=== PATIENT | male | born 1955 | race Caucasian/White ===

== ENCOUNTER 2018-04-29 10:44 | Outpatient (CLI) | payer MEDICARE ==
--- NOTE | 2018-04-29 17:37 | XRAY Report ---
Reason: ACUTE BRONCHITIS, UNSPECIFIED Procedure Date: 04/29/2018 Accession Number: [id number] / [id number] Procedure: XR - Chest 2 View X-Ray CPT Code: 78065 FULL RESULT: EXAM: CHEST RADIOGRAPHY. EXAM DATE: 04/29/2018 10:51 AM. CLINICAL HISTORY: Acute bronchitis, unspecified. COMPARISON: None. TECHNIQUE: 2 views. FINDINGS: Lungs/Pleura: No focal opacities evident. No pleural effusion. No pneumothorax. Normal volumes. Mediastinum: Heart and mediastinal contours are unremarkable. Other: None. IMPRESSION: No acute cardiopulmonary abnormality. RADIA
== END 2018-04-29 10:45 | disposition home or self-care (01) ==
LOC: DI 10:44
PROVIDERS: ATTEND Internal Medicine
DX: J20.9 Acute bronchitis, unspecified (principal)
CPT/HCPCS: 71046

== ENCOUNTER 2018-05-18 14:14 | Emergency (ER) | payer MEDICARE ==
--- NOTE | 2018-05-18 14:33 | ED Physician Documentation ---
PD HPI SYNCOPE - Stated complaint Stated Complaint: SYNCOPE/GLF - Chief complaint Chief Complaint: Cardiac - History obtained from History obtained from: Patient, Family (sister/POA) - History of Present Illness Timing - onset: Other (This is a 62-year-old gentleman who is a resident of a local [facility]. 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 He was taking a shower today and was feeling dizzy before the shower, he dropped something in the shower and bent over and then kind of crumpled down to the ground hitting his tailbone without complete loss of consciousness but nearly so. He still feels off but cannot verbalize how. The only specific complaint is tailbone pain. He denies chest pain or trouble breathing.) Review of Systems Constitutional: denies: Fever, Chills, Fatigue Cardiac: denies: Chest pain / pressure, Palpitations Respiratory: denies: Dyspnea, Cough GI: denies: Constipation, Diarrhea, Bloody / black stool PD PAST MEDICAL HISTORY - Past Medical History Past Medical History: Yes Cardiovascular: None Respiratory: None Neuro: Other Endocrine/Autoimmune: None GI: None : None HEENT: None Musculoskeletal: None Derm: None Other Past Medical History: AVM midline brain. - Past Surgical History Past Surgical History: No - Social History Does the pt smoke?: No Smoking Status: Never smoker Does the pt drink ETOH?: No Does the pt have substance abuse?: No - Immunizations Immunizations are current?: Yes - POLST Patient has POLST: No PD ED PE NORMAL - Vitals Vital signs reviewed: Yes - General General: Alert and oriented X 3 (He is a poor historian although he is alert and oriented) - HEENT HEENT: PERRL, EOMI - Neck Neck: Supple, no meningeal sign, No bony TTP - Cardiac Cardiac: RRR, No murmur - Respiratory Respiratory: No respiratory distress, Clear bilaterally - Abdomen Abdomen: Normal bowel sounds, Soft, Non tender - Back Back: No CVA TTP, No spinal TTP - Derm Derm: Normal color, Warm and dry - Extremities Extremities: No edema, No calf tenderness / cord - Neuro Neuro: Alert and oriented X 3, Normal speech Eye Opening: Spontaneous Motor: Obeys Commands Verbal: Oriented GCS Score: 15 Results - Vitals Vitals: Vital Signs - 24 hr 05/18/18 14:14 Temperature 36.9 C Heart Rate 82 Respiratory 16 Rate Blood Pressure 137/70 H O2 Saturation 96 Oxygen O2 Source Room air - EKG (time done) 1420 Rate: Rate (enter#) (78) Rhythm: NSR [place]: Normal Intervals: Normal CT QRS: Normal Ischemia: Normal ST segments Computer interpretation: Agree with computer - Rads (name of study) Ct Head Radiology: EMP read contemporaneously (Known AVM is demonstrated without evidence of active bleed) sacrum XR Radiology: EMP read contemporaneously (neg) PD MEDICAL DECISION MAKING - ED course ED course: 62-year-old gentleman with a near syncopal episode in the shower today, no full syncope. Infected the syncope is well explained because he was in the hot shower and then bent over which caused him to get dizzy, likely a combination of vasodilatation from the hot shower and decreased IVC return from position. That said given his history it was a specific concern about intracranial hemorrhage from the AVM, but there is no evidence of this. - Sepsis Event Vital Signs: Vital Signs - 24 hr 05/18/18 14:14 Temperature 36.9 C Heart Rate 82 Respiratory 16 Rate Blood Pressure 137/70 H O2 Saturation 96 Oxygen O2 Source Room air Departure - Departure Disposition: 01 Home, Self Care Clinical Impression: Near syncope, Intracranial arteriovenous malformation Sacral contusion Qualifiers: Encounter type: initial encounter Qualified Code(s): S30.0XXA - Contusion of lower back and pelvis, initial encounter Condition: Good Record reviewed to determine appropriate education?: Yes Instructions: ED Contusion Back, ED Near Syncope Unkn Comments: Call your doctor to arrange a follow-up appointment, make the next available appointment. In the interim, return anytime if worse or if new symptoms develop. Your blood pressure was elevated today on check into the emergency department. This does not mean that you have hypertension, it is a common phenomenon to come to the emergency department and have elevated blood pressure. I recommend that you see your primary care physician within the week to have it rechecked when you are feeling better.
[2018-05-18 14:54] LABS: BASOPHILS # (AUTO) 0.1 10^3/uL (0.0-0.1); BASOPHILS % (AUTO) 0.7 %; EOSINOPHILS # (AUTO) 0.1 10^3/uL (0.0-0.7); EOSINOPHILS % (AUTO) 1.5 %; HGB - HEMOGLOBIN 13.4 g/dL (14.0-18.0); LYMPHOCYTES # (AUTO) 1.8 10^3/uL (1.5-3.5); LYMPHOCYTES % (AUTO) 19.3 %; MEAN CORPUSCULAR HEMOGLOBIN 31.8 pg (27.0-31.0); MEAN CORPUSCULAR HGB CONC 34.6 g/dL (32.0-36.0); MEAN CORPUSCULAR VOLUME 91.9 fL (80.0-94.0); MEAN PLATELET VOLUME 8.7 fL (7.4-11.4); MONOCYTES # (AUTO) 0.7 10^3/uL (0.0-1.0); MONOCYTES % (AUTO) 7.1 %; NEUTROPHILS # (AUTO) 6.8 10^3/uL (1.5-6.6); NEUTROPHILS % (AUTO) 71.4 %; PLT - PLATELET COUNT 187 10^3/uL (130-450); RED BLOOD COUNT 4.23 10^6/uL (4.70-6.10); RED CELL DISTRIBUTION WIDTH 13.5 % (12.0-15.0); WHITE BLOOD COUNT 9.5 x10^3/uL (4.8-10.8)
--- NOTE | 2018-05-18 14:57 | CT Report ---
Reason: known avm, syncope Procedure Date: 05/18/2018 Accession Number: [id number] / [id number] Procedure: CT - Head W/O CPT Code: FULL RESULT: EXAM: CT HEAD EXAM DATE: 05/18/2018 02:45 PM. CLINICAL HISTORY: Known arteriovenous malformation, syncope. COMPARISON: None. TECHNIQUE: Multiaxial CT images were obtained from the foramen magnum to the vertex. Reformats: Sagittal and coronal. IV contrast: None. In accordance with CT protocol optimization, one or more of the following dose reduction techniques were utilized for this exam: automated exposure control, adjustment of mA and/or KV based on patient size, or use of iterative reconstructive technique. FINDINGS: Parenchyma: No intraparenchymal hemorrhage. Findings of a calcified left basal ganglia mass with hyperdense dominant vessel coursing near the midline is consistent with the provided history of a arteriovenous malformation with likely central drainage. Extraaxial Spaces: Normal for age. No subdural or epidural collections identified. Ventricles: Normal in size and position. Sinuses and Orbits: Imaged paranasal sinuses, orbits, and mastoids show no significant abnormality. Bones: No evidence of fracture or calvarial defect. Other: None. IMPRESSION: No acute intracranial hemorrhage. RADIA
[2018-05-18 15:01] LABS: PT - PROTHROMBIN TIME 11.4 secs (9.9-12.6)
[2018-05-18 15:07] LABS: ALBUMIN 3.8 g/dL (3.2-5.5); ALBUMIN/GLOBULIN RATIO 1.2 (1.0-2.2); ALKALINE PHOSPHATASE 96 IU/L (42-121); ALT ALANINE AMINOTRANSFERASE 33 IU/L (10-60); AST ASPARTATE AMINOTRANSFERASE 22 IU/L (10-42); BILIRUBIN,TOTAL 0.3 mg/dL (0.2-1.0); BUN - BLOOD UREA NITROGEN 21 mg/dL (6-20); CALCIUM 8.9 mg/dL (8.5-10.3); CARBON DIOXIDE - CO2 28 mmol/L (21-32); CHLORIDE 102 mmol/L (101-111); CREATININE 1.4 mg/dL (0.6-1.2); GFR - MDRD 52 (>89); GLUCOSE 133 mg/dL (70-100); LIPASE 39 U/L (22-51); SODIUM 137 mmol/L (135-145)
--- NOTE | 2018-05-18 16:14 | XRAY Report ---
Reason: tailbone inj Procedure Date: 05/18/2018 Accession Number: [id number] / [id number] Procedure: XR - Sacrum/Coccyx CPT Code: FULL RESULT: EXAM: SACRUM AND COCCYX RADIOGRAPHY EXAM DATE: 05/18/2018 03:59 PM. HISTORY: Trauma, pain. COMPARISONS: None. TECHNIQUE: 3 views. FINDINGS: Alignment: Anteverted coccyx, normal variant. Otherwise unremarkable. Bones: Normal. No fracture or bone lesion. Joints: Normal. The sacroiliac joints and visualized hips are within normal limits. Degenerative disk disease at L5-S1. Soft Tissues: Unremarkable. IMPRESSION: No acute disease. RADIA
[2018-05-18 16:34] VITALS: BP 123/75
== END 2018-05-18 16:48 | disposition home or self-care (01) ==
LOC: ED 14:14
DX: R55 Syncope and collapse (principal); Q28.2 Arteriovenous malformation of cerebral vessels; S30.0XXA Contusion of lower back and pelvis, initial encounter; W17.89XA Other fall from one level to another, initial encounter; Y93.E1 Activity, personal bathing and showering; Y92.192 Bathroom in other specified residential institution as the place of occurrence of the external cause; R03.0 Elevated blood-pressure reading, without diagnosis of hypertension
CPT/HCPCS: 36415; 70450; 72220; 80053; 80320; 83690; 84484; 85025; 85610; 93005; 99283

== ENCOUNTER 2020-02-01 10:51 | Outpatient (CLI) | payer MEDICARE, MEDICAID ==
--- NOTE | 2020-02-01 14:15 | CT Report ---
PROCEDURE: HEAD WO INDICATIONS: UNSPECIFIED HEARING LOSS, BILATERAL TECHNIQUE: Noncontrast 4.5 mm thick angled axial sections acquired from the foramen magnum to the vertex. For r adiation dose reduction, the following was used: automated exposure control, adjustment of mA and/or kV according to patient size. COMPARISON: CT head 05/18/2018 FINDINGS: Image quality: Excellent. CSF spaces: Basal cisterns are patent. No extra-axial fluid collections. Ventricles are normal in size and shape. Brain: There is a partially calcified mass within the left basal ganglia extending to the midline wi th effacement of the frontal horn of the left lateral ventricle. It is overall unchanged in size and appearance. Additional serpiginous areas are identified coursing over the right frontal horn. Ambriz-w grisel matter interface is normal. Skull and face: Calvarium and visualized facial bones are intact, without suspicious lesions. Sinuses: Visualized sinuses and mastoids are clear. IMPRESSION: 1. No acute intracranial process. If hearing persists, further evaluation with MRI IAC protocol is r ecommended. 2. Partially calcified left basal ganglia mass as described above. It is stable and consistent with g iven history of vascular malformation. Reviewed by: Maria Teresa Wallace MD on 02/01/2020 2:14 PM PDT Approved by: Maria Teresa Wallace MD on 02/01/2020 2:14 PM PDT Station ID: [id number]
== END 2020-02-01 10:52 | disposition home or self-care (01) ==
LOC: DI 10:51
PROVIDERS: ATTEND Family Medicine
DX: H91.93 Unspecified hearing loss, bilateral (principal)
CPT/HCPCS: 70450

== ENCOUNTER 2020-02-28 18:50 | Emergency (ER) | payer MEDICARE, MEDICAID ==
--- NOTE | 2020-02-28 19:12 | ED Physician Documentation ---
History of Present Illness - Stated complaint Stated Complaint: DIZZY - Chief complaint Chief Complaint: General - History obtained from History obtained from: Patient, Family (sister) - Additonal information Additional information: 64-year-old gentleman with some cognitive deficits presents accompanied by his sister because at the assisted living center they gave him his routine medications at 6 PM and then at 605 accidentally gave him another patient's medications which included clopidogrel 75 mg, an extra dose of a statin, and 1 mg of prazosin. He says he feels a little loopy but otherwise fine. Note made that he denies any headache which is reassuring since he has a known large AVM. Review of Systems Constitutional: reports: Reviewed and negative Nose: reports: Reviewed and negative Throat: reports: Reviewed and negative PD PAST MEDICAL HISTORY - Past Medical History Cardiovascular: None Respiratory: None Neuro: Other Endocrine/Autoimmune: None GI: None : None HEENT: None Musculoskeletal: None Derm: None - Past Surgical History Past Surgical History: No - Allergies Allergies/Adverse Reactions: Allergies Allergy/AdvReac Type Severity Reaction Status Date / Time No Known Drug Allergies Allergy Verified 02/28/20 18:54 - Social History Does the pt smoke?: No Smoking Status: Never smoker Does the pt drink ETOH?: No Does the pt have substance abuse?: No - Immunizations Immunizations are current?: Yes - POLST Patient has POLST: No PD ED PE NORMAL - Vitals Vital signs reviewed: Yes - General General: Alert and oriented X 3, Other (He is alert and oriented but slow historian and most of the history is from his sister.) - HEENT HEENT: PERRL, EOMI - Neck Neck: Supple, no meningeal sign, No bony TTP - Extremities Extremities: No edema, No calf tenderness / cord - Neuro Neuro: No motor deficit, No sensory deficit Results - Vitals Vitals: Vital Signs - 24 hr 02/28/20 18:55 Temperature 36.5 C Heart Rate 105 H Respiratory 16 Rate Blood Pressure 100/57 L O2 Saturation 93 Oxygen O2 Source Room air - EKG (time done) 1859 Rate: Rate (enter#) (105) Rhythm: Sinus tachycardia [place]: Normal Intervals: Normal [place] QRS: Normal Ischemia: Normal ST segments Computer interpretation: Agree with computer PD MEDICAL DECISION MAKING - ED course ED course: 64-year-old gentleman with accidental but nontoxic overdose. Given the AVM and Plavix ingestion frequent checks were recommended but otherwise no specific care is necessary. Departure - Departure Disposition: 01 Home, Self Care Clinical Impression: Accidental overdose Qualifiers: Encounter type: initial encounter Qualified Code(s): T50.901A - Poisoning by unspecified drugs, medicaments and biological substances, accidental ( unintentional), initial encounter Condition: Good Record reviewed to determine appropriate education?: Yes Instructions: ED Overdose Accidental Comments: I would ask Gary to do every 8 hour checks on you to make sure you do not have a significant headache. Otherwise expect any and all symptoms to be gone by morning.
[2020-02-28 19:36] VITALS: BP 135/84
== END 2020-02-28 19:24 | disposition home or self-care (01) ==
LOC: ED 18:50
DX: T45.521A Poisoning by antithrombotic drugs, accidental (unintentional), initial encounter (principal); T44.6X1A Poisoning by alpha-adrenoreceptor antagonists, accidental (unintentional), initial encounter; R41.82 Altered mental status, unspecified; Y92.199 Unspecified place in other specified residential institution as the place of occurrence of the external cause
CPT/HCPCS: 93005; 99283

== ENCOUNTER 2021-04-27 12:40 | Outpatient (CLI) | payer MEDICARE, MEDICAID ==
--- NOTE | 2021-04-27 13:06 | CT Report ---
PROCEDURE: HEAD WO INDICATIONS: ARTERIOVENOUS MALFORMATION TECHNIQUE: Noncontrast 4.5 mm thick angled axial sections acquired from the foramen magnum to the vertex. For r adiation dose reduction, the following was used: automated exposure control, adjustment of mA and/or kV according to patient size. COMPARISON: Prior head CT from 01/29/2020 FINDINGS: Image quality: Excellent. CSF spaces: Basal cisterns are patent. No extra-axial fluid collections. Brain: No midline shift. No evidence of acute intracranial hemorrhage. There is redemonstration of large AVM involving the left basal ganglia region with associated calcifications, and slight rightwar d midline shift which is also unchanged. Ambriz-white matter interface is normal. Skull and face: Calvarium and visualized facial bones are intact, without suspicious lesions. Sinuses: Visualized sinuses and mastoids are clear. IMPRESSION: Overall, stable examination since 02/01/2020. Redemonstrated large vascular malformation in the region of the left basal ganglia . No interval change or acute intracranial process. Reviewed by: Gunnar Gupta MD on 04/27/2021 1:05 PM PDT Approved by: Gunnar Gupta MD on 04/27/2021 1:05 PM PDT Station ID: [id number]
== END 2021-04-27 12:41 | disposition home or self-care (01) ==
LOC: DI 12:40
PROVIDERS: ATTEND Family Medicine
DX: H91.93 Unspecified hearing loss, bilateral (principal); Q28.2 Arteriovenous malformation of cerebral vessels

== ENCOUNTER 2022-07-26 12:55 | Outpatient (CLI) | payer MEDICARE, MEDICAID ==
--- NOTE | 2022-07-26 16:50 | CT Report ---
PROCEDURE: HEAD WO INDICATIONS: ARTERIOVENOUS MALFORMATION OF CEREBRAL VESSELS TECHNIQUE: Noncontrast 4.5 mm thick angled axial sections acquired from the foramen magnum to the vertex. For r adiation dose reduction, the following was used: automated exposure control, adjustment of mA and/or kV according to patient size. COMPARISON: CT head 04/27/2021 and 02/01/2020 FINDINGS: Image quality: Excellent. Brain and CSF: Basal cisterns are patent. No extra-axial fluid collections. Calcified hypodense le lizet is again seen in the region of the left basal ganglia with an enlarged tortuous vessels in the a djacent tissues and in the left lateral ventricle extending posteriorly and into the posterior fossa. The appearance does not appear significantly changed when compared to the CT from 04/27/2021 and is c onsistent with patient's known arteriovenous malformation. Stable trace rightward midline shift at th e level of the septum pellucidum. No ventriculomegaly. Ventricles are normal in size and shape. No f ocal intraperitoneal edema or acute hemorrhage is seen. Skull and face: Calvarium and visualized facial bones are intact, without suspicious lesions. Sinuses: Visualized sinuses and mastoids are clear. IMPRESSION: Large partially calcified arteriovascular malformation centered in the left basal gangli a does not appear significantly changed when compared to the CT from 04/27/2021 or 02/01/2020 Reviewed by: Fransisco Santiago MD on 07/26/2022 4:49 PM PST Approved by: Fransisco Santiago MD on 07/26/2022 4:49 PM PST Station ID: [id number]
== END 2022-07-26 12:56 | disposition home or self-care (01) ==
LOC: DI 12:55
PROVIDERS: ATTEND Family Medicine
DX: Q28.2 Arteriovenous malformation of cerebral vessels (principal)

== ENCOUNTER 2023-11-18 09:36 | Outpatient (CLI) | payer MEDICARE, MEDICAID ==
[2023-11-18 09:51] LABS: BASOPHILS % (AUTO) 0.5 %; EOSINOPHILS # (AUTO) 0.2 10^3/uL (0.0-0.7); EOSINOPHILS % (AUTO) 2.7 %; HGB - HEMOGLOBIN 14.7 g/dL (14.0-18.0); LYMPHOCYTES # (AUTO) 2.4 10^3/uL (1.5-3.5); LYMPHOCYTES % (AUTO) 30.7 %; MEAN CORPUSCULAR HEMOGLOBIN 30.2 pg (27.0-31.0); MEAN CORPUSCULAR VOLUME 94.7 fL (80.0-94.0); MEAN PLATELET VOLUME 10.8 fL (7.4-11.4); MONOCYTES # (AUTO) 0.6 10^3/uL (0.0-1.0); MONOCYTES % (AUTO) 7.2 %; NEUTROPHILS # (AUTO) 4.5 10^3/uL (1.5-6.6); NEUTROPHILS % (AUTO) 58.6 %; PLT - PLATELET COUNT 219 10^3/uL (130-450); RED BLOOD COUNT 4.86 10^6/uL (4.70-6.10); WHITE BLOOD COUNT 7.7 x10^3/uL (4.8-10.8)
[2023-11-18 10:10] LABS: ALBUMIN 4.1 g/dL (3.2-5.5); ALBUMIN/GLOBULIN RATIO 1.2 (1.0-2.2); ALKALINE PHOSPHATASE 102 IU/L (42-121); ALT ALANINE AMINOTRANSFERASE 42 IU/L (10-60); AST ASPARTATE AMINOTRANSFERASE 22 IU/L (10-42); BILIRUBIN,TOTAL 0.5 mg/dL (0.2-1.0); BUN - BLOOD UREA NITROGEN 28 mg/dL (6-20); CALCIUM 9.9 mg/dL (8.5-10.3); CARBON DIOXIDE - CO2 31 mmol/L (21-32); CHLORIDE 104 mmol/L (101-111); CHOL/HDL RATIO 5.6 (<5.0); CHOLESTEROL 196 mg/dL; CREATININE 1.5 mg/dL (0.6-1.3); GFR - MDRD 47 (>89); GLUCOSE 99 mg/dL (74-104); HDL CHOLESTEROL 35 mg/dL; LDL CHOLESTEROL,CALCULATED 119 mg/dL; LDL/HDL RATIO 3.4 (<3.6); MAGNESIUM 1.8 mg/dL (1.7-2.3); POTASSIUM 4.3 mmol/L (3.5-4.5); SODIUM 140 mmol/L (135-145); TOTAL PROTEIN 7.6 g/dL (6.4-8.9); TRIGLYCERIDES 211 mg/dL (48-352); VLDL CHOLESTEROL 42 mg/dL
== END 2023-11-18 09:37 | disposition home or self-care (01) ==
LOC: LAB 09:36
PROVIDERS: ATTEND Family Medicine
DX: E78.01 Familial hypercholesterolemia (principal); I10 Essential (primary) hypertension; Q28.2 Arteriovenous malformation of cerebral vessels; R74.9 Abnormal serum enzyme level, unspecified; Z79.899 Other long term (current) drug therapy; R55 Syncope and collapse; E55.9 Vitamin D deficiency, unspecified; R00.2 Palpitations
CPT/HCPCS: 36415; 80053; 80061; 82306; 82607; 83721; 83735; 85025

== ENCOUNTER 2023-12-23 18:12 | Emergency (ER) | payer MEDICARE, MEDICAID ==
--- NOTE | 2023-12-23 19:35 | ED Physician Documentation ---
PD HPI LOWER EXT INJURY - Stated complaint Stated Complaint: RT LEG SWELLING/PX - Chief complaint Chief Complaint: Ext Problem - History obtained from History obtained from: Patient - Additional information Additional information: The patient comes to the emergency department chief complaint of right lower extremity pain that is mainly centered in his calf. He is not exactly sure how long it has been going on but it has been at least some days. The patient has a history of a stroke previously and has some motor deficit in his right lower extremity. This does result in some alteration in the way that he is able to stand and walk. The patient's sister noticed that the right leg seemed to be enlarged compared to the left and became concerned and brought him in. The patient had not noticed any swelling. He denies any chest pain or shortness of breath. He has no history of DVT or PE. He was a smoker for many years but quit about 6 years ago after he had his stroke. No other complaints at this time. No recent surgeries. No recent long trips or other unusual immobilization. PD PAST MEDICAL HISTORY - Past Medical History Past Medical History: Yes Cardiovascular: None Respiratory: None Neuro: Dementia, CVA, Other Endocrine/Autoimmune: None GI: None : Benign prostate hypertrophy HEENT: Chronic hearing loss Psych: None Musculoskeletal: None Derm: None - Past Surgical History Past Surgical History: No - Present Medications Home Medications: Ambulatory Orders Medication Instructions Recorded Confirmed Simvastatin [Zocor] 20 mg PO DAILY 12/23/23 12/23/23 Tamsulosin [Flomax] 0.4 mg PO DAILY 12/23/23 12/23/23 - Allergies Allergies/Adverse Reactions: Allergies Allergy/AdvReac Type Severity Reaction Status Date / Time No Known Drug Allergies Allergy Verified 12/23/23 18:20 - Social History Does the pt smoke?: No Smoking Status: Never smoker Does the pt drink ETOH?: No Does the pt have substance abuse?: No - Immunizations Immunizations are current?: Yes - POLST Patient has POLST: No PD ED PE NORMAL - Vitals Vital signs reviewed: Yes - General General: No acute distress, Well developed/nourished, Other (Alert, grossly oriented) - HEENT HEENT: Atraumatic, EOMI, Moist mucous membranes - Neck Neck: Supple, no meningeal sign - Cardiac Cardiac: RRR, No murmur - Respiratory Respiratory: No respiratory distress, Clear bilaterally - Derm Derm: Normal color, Warm and dry, No rash - Extremities Extremities: No deformity, Other (Slight enlargement of the right calf compared to the left without pitting edema. Tenderness to palpation over the posterior and medial lateral calf on the right. No left-sided tenderness. Neurovascularly intact.) - Neuro Neuro: Alert and oriented X 3 - Psych Psych: Normal mood, Normal affect Results - Vitals Vitals: Vital Signs - 24 hr 12/23/23 12/23/23 18:20 20:15 Temperature 36.6 C 36.8 C Heart Rate 84 79 Respiratory 18 18 Rate Blood Pressure 120/59 L 138/69 H O2 Saturation 94 97 Oxygen O2 Source Room air - Rads (name of study) Venous duplex ultrasound right lower extremity Relevant Findings:: Final report received, See rad report (Negative) PD Medical Decision Making - ED course Complexity details: reviewed results, re-evaluated patient, considered differential, d/w patient ED course: The patient was worked up with ultrasound of his right lower extremity which was negative. I did not find any evidence of cellulitis and the patient had great pulses. I felt he was stable for discharge home. I have not found an emergent condition as a reason for his pain. We have discussed the usual indications for follow-up and return. Departure - Departure Disposition: 01 Home, Self Care Clinical Impression: Right calf pain Condition: Stable Instructions: ED Muscle Pain Leg Cramps Comments: Your ultrasound is negative. There is no blood clot and examination of your leg, other than revealing some pain/tenderness, does not show any indication for any other more serious process, such as infection. It is not clear exactly why your calf hurts although it may be related to the altered ability to move and stand since her stroke. You may take ibuprofen and/or Tylenol to help with discomfort. Please also consider stretching the calf and utilizing massage to help with some soreness. Please follow-up with your primary doctor for any further concerns. Forms: PCP List Discharge Date/Time: 12/23/23 20:15
--- NOTE | 2023-12-23 20:17 | Ultrasound Report ---
PROCEDURE: Duplex Ext Veins Right INDICATIONS: right calf pain and tenderness TECHNIQUE: Real-time imaging, as well as color and pulse Doppler interrogation, were performed of the lower extr emity deep veins from the inguinal ligament to the popliteal fossa. Attempted visualization of the ca lf veins was performed. COMPARISON: None. FINDINGS: The deep veins are normally compressible, and free of intraluminal thrombus. Color and pu lse Doppler demonstrate normal phasic intraluminal flow. There is normal augmentation response to di stal compression maneuver. IMPRESSION: No deep venous thrombosis of the visualized lower extremity. Reviewed by: Fuentes Mason MD on 12/23/2023 8:16 PM PDT Approved by: Fuentes Mason MD on 12/23/2023 8:16 PM PDT Station ID: [id number]
[2023-12-23 20:25] VITALS: BP 138/69; O2SAT 97
== END 2023-12-23 20:15 | disposition home or self-care (01) ==
LOC: ED 18:12
DX: M79.661 Pain in right lower leg (principal); Z86.73 Personal history of transient ischemic attack (TIA), and cerebral infarction without residual deficits; N40.0 Benign prostatic hyperplasia without lower urinary tract symptoms
CPT/HCPCS: 99283; 99284

== ENCOUNTER 2024-02-02 09:59 | Inpatient (IN) | payer MEDICARE, MEDICAID ==
[2024-02-02 10:46] LABS: BASOPHILS # (AUTO) 0.1 10^3/uL (0.0-0.1); BASOPHILS % (AUTO) 0.6 %; EOSINOPHILS # (AUTO) 0.1 10^3/uL (0.0-0.7); EOSINOPHILS % (AUTO) 1.1 %; HCT - HEMATOCRIT 47.9 % (42.0-52.0); HGB - HEMOGLOBIN 15.1 g/dL (14.0-18.0); MEAN CORPUSCULAR HEMOGLOBIN 29.5 pg (27.0-31.0); MEAN CORPUSCULAR HGB CONC 31.5 g/dL (32.0-36.0); MEAN CORPUSCULAR VOLUME 93.6 fL (80.0-94.0); MEAN PLATELET VOLUME 10.5 fL (7.4-11.4); MONOCYTES # (AUTO) 0.7 10^3/uL (0.0-1.0); MONOCYTES % (AUTO) 6.8 %; NEUTROPHILS # (AUTO) 7.1 10^3/uL (1.5-6.6); NEUTROPHILS % (AUTO) 71.2 %; PLT - PLATELET COUNT 253 10^3/uL (130-450); RED BLOOD COUNT 5.12 10^6/uL (4.70-6.10); RED CELL DISTRIBUTION WIDTH 12.7 % (12.0-15.0); WHITE BLOOD COUNT 9.9 x10^3/uL (4.8-10.8)
[2024-02-02 10:59] LABS: BILIRUBIN,URINE SMALL (NEGATIVE); GLUCOSE, URINE (UA) NEGATIVE (NEGATIVE); KETONES,URINE (UA) TRACE mg/dL (NEGATIVE); LEUKOCYTE ESTERASE, URINE NEGATIVE (NEGATIVE); NITRITE,URINE NEGATIVE (NEGATIVE); OCCULT BLOOD,URINE NEGATIVE (NEGATIVE); PROTEIN,URINE NEGATIVE (NEGATIVE); UROBILINOGEN,URINE 0.2 (NORMAL) E.U./dL (NORMAL)
[2024-02-02 11:01] LABS: CLARITY,URINE CLEAR (CLEAR)
[2024-02-02 11:07] LABS: ALBUMIN 4.3 g/dL (3.2-5.5); ALBUMIN/GLOBULIN RATIO 1.3 (1.0-2.2); BILIRUBIN,TOTAL 0.8 mg/dL (0.2-1.0); CALCIUM 9.7 mg/dL (8.5-10.3); CREATININE 1.6 mg/dL (0.6-1.3); POTASSIUM 4.3 mmol/L (3.5-4.5); TOTAL PROTEIN 7.5 g/dL (6.4-8.9)
--- NOTE | 2024-02-02 13:25 | ED Physician Documentation ---
History of Present Illness - Stated complaint Stated Complaint: GI,BACK PX - Chief complaint Chief Complaint: Abd Pain - History obtained from History obtained from: Patient, Family - History of Present Illness Timing: How many days ago (7-10) Pain level max: 5 Pain level now: 5 - Additonal information Additional information: Patient is a 68-year-old male, history of dementia, presents to the emergency department with generalized abdominal pain over the past 2 to 3 days. Family states that he reports he has not had a bowel movement in 10 days. Lives at [facility] assisted living. No vomiting. They tried milk of magnesia and MiraLAX with only a small soft stool. Complains of abdominal pain and distention. No fevers. No chills. No blood in the stool. 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 - Past Surgical History Past Surgical History: No - Present Medications Home Medications: Ambulatory Orders Medication Instructions Recorded Confirmed Simvastatin [Zocor] 20 mg PO DAILY 12/23/23 02/02/24 Tamsulosin [Flomax] 0.4 mg PO DAILY 12/23/23 02/02/24 Cholecalciferol [Vitamin D3] 50 mcg PO DAILY 02/02/24 02/02/24 - Allergies Allergies/Adverse Reactions: Allergies Allergy/AdvReac Type Severity Reaction Status Date / Time No Known Drug Allergies Allergy Verified 02/02/24 10:15 - Social History Does the pt smoke?: No Smoking Status: Never smoker Does the pt drink ETOH?: No Does the pt have substance abuse?: No - Immunizations Immunizations are current?: Yes - POLST Patient has POLST: No PD ED PE NORMAL - Vitals Vital signs reviewed: Yes - General General: No acute distress, Other (Alert, oriented to person and place, confused to time, at his normal baseline) - HEENT HEENT: Moist mucous membranes - Neck Neck: Supple, no meningeal sign - Cardiac Cardiac: RRR - Respiratory Respiratory: No respiratory distress, Clear bilaterally - Abdomen Abdomen: Soft, Other (TTP suprapubic without peritoneal signs.) - Back Back: No CVA TTP, No spinal TTP - Derm Derm: Warm and dry - Extremities Extremities: No edema, No calf tenderness / cord - Neuro Neuro: Other (Alert, oriented to person and place, confused to time, at his normal baseline) Results - Vitals Vitals: Vital Signs - 24 hr 02/02/24 02/02/24 02/02/24 10:16 12:54 14:00 Temperature 36.7 C Heart Rate 113 H 93 87 Respiratory 18 18 18 Rate Blood Pressure 131/78 H 140/69 H 127/87 H O2 Saturation 95 94 98 If not protocol : Oxygen Flow, liters/minute 02/02/24 02/02/24 02/02/24 16:00 16:36 16:37 Temperature 36.8 C Heart Rate 108 H Respiratory 18 Rate Blood Pressure 114/61 O2 Saturation 92 88 L 92 If not protocol 1 : Oxygen Flow, liters/minute Oxygen O2 Source Nasal cannula - Labs Labs: Laboratory Tests 02/02/24 02/02/24 02/02/24 10:32 10:41 10:41 WBC 9.9 RBC 5.12 Hgb 15.1 Hct 47.9 MCV 93.6 MCH 29.5 MCHC 31.5 L RDW 12.7 Plt Count 253 MPV 10.5 Neut # (Auto) 7.1 H Lymph # (Auto) 2.0 [place] # (Auto) 0.7 Eos # (Auto) 0.1 Baso # (Auto) 0.1 Absolute Nucleated RBC 0.00 Nucleated RBC % 0.0 Sodium 134 L Potassium 4.3 Chloride 98 L Carbon Dioxide 31 Anion Gap 5.0 L BUN 27 H Creatinine 1.6 H Estimated GFR (MDRD) 43 L Glucose 125 H Calcium 9.7 Total Bilirubin 0.8 AST 28 ALT 46 Alkaline Phosphatase 120 Total Protein 7.5 Albumin 4.3 Globulin 3.2 Albumin/Globulin Ratio 1.3 Lipase 14 Urine Color DARK YELLOW Urine Clarity CLEAR Urine pH 6.0 Ur Specific [place] 1.025 Urine Protein NEGATIVE Urine Glucose (UA) NEGATIVE Urine Ketones TRACE Urine Occult Blood NEGATIVE Urine Nitrite NEGATIVE Urine Bilirubin SMALL H Urine Urobilinogen 0.2 (NORMAL) Ur Leukocyte Esterase NEGATIVE Ur Microscopic Review NOT INDICATED Urine Culture Comments NOT INDICATED - Rads (name of study) CT abd/pelvis Relevant Findings:: Final report received, See rad report PD Medical Decision Making - ED course Complexity details: reviewed results, re-evaluated patient, considered differential, d/w patient, d/w human performance consultant ED course: 68-year-old male with what appears to be diverticulitis on his CT scan. He is well-appearing, nontoxic. Afebrile. Normal white blood cell count. Possible 4 cm abscess. Discussed the case with Dr. Bullard, general surgery on-call who reviewed the CT images and came and evaluated the patient. Recommends admission with IV antibiotics on the hospitalist service, he will consult and follow along to see how the patient progresses over the next few days. Discussed the case with the hospitalist, who accepts. Patient was given IV Zosyn. This document was made in part using voice recognition software. While efforts are made to proofread this document, sound alike and grammatical errors may curtisu r. Departure - Departure Disposition: 67 [facility] DC/Xfer Clinical Impression: Diverticulitis, Abscess of sigmoid colon due to diverticulitis Condition: Stable Discharge Date/Time: 02/02/24 17:45
[2024-02-02] MEDS: SODIUM CHLORIDE 0.9% 1,000 ML IV STA (13:28)
[2024-02-02] MEDS ORDERED: iohexoL-300 100 ML VIAL ONE (14:23)
[2024-02-02] MEDS: SALINE ENEMA 133 ML BOTTLE RC STA (14:45)
[2024-02-02] MEDS: iohexoL-300 100 ML VIAL IVP ONE (14:49)
--- NOTE | 2024-02-02 15:08 | CT Report ---
PROCEDURE: Abdomen/Pelvis W INDICATIONS: diffuse abd pain CONTRAST: 100 ML OMNI 300 TECHNIQUE: After the administration of intravenous contrast, a CT scan of the abdomen and pelvis was performed. Images were recorded and evaluated at appropriate window settings. Reformats: coronal and sagittal. F or radiation dose reduction, the following was used: automated exposure control, adjustment of mA and /or kV according to patient size. COMPARISON: None. FINDINGS: Image quality: Diagnostic. Lower chest: Streaky bibasilar pulmonary opacities. Calcification of the coronary vasculature. Liver: No solid mass. Gallbladder: Within normal limits Biliary tree: No intrahepatic or extrahepatic dilation, accounting for age. Spleen: No splenomegaly. Pancreas: No pancreatic ductal dilation. Adrenals: No adrenal nodule. Kidneys and ureters: No hydronephrosis. No renal cystic lesion which requires follow up. No solid mas s. Stomach, bowel and peritoneum: No gastric or small bowel dilation. There is diverticulosis of the quin cending and sigmoid colon. There is a focal region of thickening of the mid sigmoid colon within the anterior pelvis which demonstrates mild surrounding fat stranding. There is a gas and fluid collectio n at the posterior aspect of the thickened colon measuring roughly 40 mm diameter, with surrounding f at stranding. Lymph nodes: No central or retroperitoneal adenopathy. Vessels: No infrarenal aortic aneurysm. Patent portal vein. PELVIS Reproductive organs: Unremarkable. Bladder: No abnormal wall thickening, accounting for underdistention. Pelvic lymph nodes: No pelvic adenopathy by size criteria. Bones: No aggressive osseous abnormality. Other: No significant ventral or inguinal hernia. IMPRESSION: 1. Sigmoid diverticulitis with fluid and gas-containing pericolonic abscess. Follow-up colonoscopy is recommended to exclude underlying neoplasm. 2. Coronary artery disease. Reviewed by: Kevin Beltre MD on 02/02/2024 3:07 PM PDT Approved by: Kevin Beltre MD on 02/02/2024 3:07 PM PDT Station ID: [email or web address]
[2024-02-02] MEDS: PIPERACILLIN/TAZOBACTAM 3.375 GM in SODIUM CHLORIDE 0.9% MINIBAG 100 ML IV STA (15:47)
--- NOTE | 2024-02-02 16:59 | PHARMACY PROGRESS NOTE ---
- Best Possible Medication History Admit Date and Time: Processed by: Pharmacy Medications reviewed in ED?: Yes Medication History completed: Yes Patient Interview: Completed Secondary Source(s): Spouse/Significant other, Insurance records As the person ultimately responsible for medication therapy, providers are able to order a medication from an existing home medication list in [facility] via the "Reconcile Routine" prior to Confirmation of that medication by production support developer. Such practice is discouraged except when the physician, in their clinical judgment, deems that a medical need exists for a medication without regard to previous use.
[2024-02-02] MEDS ORDERED: SODIUM CHLORIDE FLUSH 0.9% 10 ML SYRINGE IVP PRN (17:02)
[2024-02-02] MEDS ORDERED: ONDANSETRON 4 MG/2 ML VIAL IVP PRN (17:02)
[2024-02-02] MEDS ORDERED: oxyCODONE 5 MG TABLET PO PRN (17:02)
[2024-02-02] MEDS ORDERED: HYDROmorphone 0.5 MG/0.5 ML SYRINGE IVP PRN (17:02)
[2024-02-02] MEDS ORDERED: ACETAMINOPHEN 325 MG TABLET PO PRN (17:02)
[2024-02-02] MEDS ORDERED: OLANZapine ODT 5 MG TABLET TL PRN (17:06)
--- NOTE | 2024-02-02 17:13 | HISTORY & PHYSICAL EXAMINATION ---
Chief Complaint - Chief Complaint Chief Complaint: Abdominal pain History of Present Illness - Admitted From Admitted From:: The emergency department - History Obtained From Records Reviewed: Yes History obtained from: The patient's sister and healthcare power of civil litigation attorney - History of Present Illness HPI Comment/Other: The patient is a pleasant 68-year-old gentleman with a past medical history of subarachnoid hemorrhage. He had his first hemorrhage in his 20s and had another severe hemorrhage about 7 years ago. As a result he has some cognitive deficits. He lives in a local assisted living facility. The patient was brought to the emergency room with a 1 week history of worsening abdominal pain. The patient has not had a bowel movement in over a week and has had enemas and an aggressive bowel regimen with no relief. Workup in the emergency room revealed white blood cell count of 9.9, hemoglobin of 15.1, platelet level of 253. Sodium level was 134, potassium 4.3, creatinine 1.6 with a BUN of 27. Glucose is mildly elevated at 125. Liver panel is unremarkable. CT scan of the abdomen and pelvis revealed streaky bibasilar pulmonary opacities. He was found to have evidence of sigmoid diverticulitis with a fluid and gas containing pericolonic abscess. The radiologist recommended a follow-up colonoscopy to exclude an underlying neoplasm. He also was noted to have coronary artery calcifications worrisome for coronary artery disease. The patient is awake and alert and quite pleasant. However he is unable to give any meaningful history. He is able to tell me that he has had pain in his abdomen and that it is not too bad at this time lying in the bed. Otherwise review of systems could not be obtained. I did speak at length to the patient's sister. Her name is Irma Olvera [phone]. She is his healthcare power of civil litigation attorney. She indicates that she is hoping that he will not need to have surgery. She would like for him to be a DNR and does not want any aggressive care at the end of life but would want treatment up until that point. The POLST form was filled out and will be scanned into the medical record. 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 - Family & Social History Family History: Sister: Alive and Well (Sister with diverticulitis), Other family: Alive and Well Living arrangement: Assisted living - Substance History Use: Uses substance without health or social issues: NONE Abuse: Recurrent use of substance despite neg consequences: NONE Dependence: Experiences withdrawal or developed tolerances: NONE - POLST Patient has POLST: Yes POLST Status: DNR (With selective treatment) Meds/Allgy - Home Medications Home Medications: Ambulatory Orders Medication Instructions Recorded Confirmed Simvastatin [Zocor] 20 mg PO DAILY 12/23/23 02/02/24 Tamsulosin [Flomax] 0.4 mg PO DAILY 12/23/23 02/02/24 Cholecalciferol [Vitamin D3] 50 mcg PO DAILY 02/02/24 02/02/24 - Allergies Allergies/Adverse Reactions: Allergies Allergy/AdvReac Type Severity Reaction Status Date / Time No Known Drug Allergies Allergy Verified 02/02/24 10:15 Review of Systems - Gastrointestinal Gastrointestinal: reports: Abdominal pain, Constipation - All Other Systems All Other Systems: reports: Reviewed and negative Prior Level of Functionality: The patient lives in an assisted living facility. He has difficulty ambulating and does have a walker but he does not use it all the time. Exam - Vital Signs Reviewed Vital Signs: Yes Vital Signs: Vital Signs x48h Temp Pulse Resp BP Pulse Ox O2 Flow Rate 02/02/24 16:37 92 1 02/02/24 16:36 88 L 02/02/24 16:00 36.8 C 108 H 18 114/61 92 02/02/24 14:00 87 18 127/87 H 98 02/02/24 12:54 93 18 140/69 H 94 02/02/24 10:16 36.7 C 113 H 18 131/78 H 95 - Physical Exam General Appearance: positive: No acute distress, Alert Eyes Bilateral: positive: Normal inspection Neck: positive: Nml inspection Respiratory: positive: Chest non-tender, No respiratory distress, Breath sounds nml Cardiovascular: positive: Regular rate & rhythm, No murmur, No gallop. neg ative: Friction rub Abdomen: positive: Non-tender, No organomegaly, Nml bowel sounds Skin: positive: Color nml, No rash, Warm Neurologic/Psychiatric: positive: Oriented x3, Other (But clearly with some cognitive deficits) Sepsis Event Note (H) - Sepsis Criteria Sepsis Criteria: Recorded Heart Rate greater than 90 bpm, Respiratory: Increasing oxygen requirements Conclusion/Plan - Problem List (1) Abscess of sigmoid colon due to diverticulitis Conclusion/Plan: General surgery has been consulted. The patient will continue IV Zosyn for now. He will remain NPO. We look forward to further recommendations from general surgery. (2) Hypoxia Conclusion/Plan: The patient dropped his oxygen saturations while we were in the room down to 88% on room air. CT of the abdomen and pelvis revealed some patchy opacities in the lower bases that was nonspecific. Will obtain a chest x-ray. He does not clinically appear to have pneumonia. This may be due to early developing sepsis. Continue to titrate oxygen to keep his O2 saturations greater than 92%. He is in no distress and does not appear to be acutely uncomfortable. (3) History of subarachnoid hemorrhage Conclusion/Plan: Avoid blood thinners. He will have SCDs for DVT prophylaxis. He has had 2 subarachnoid hemorrhages in the past (4) Intracranial arteriovenous malformation Conclusion/Plan: Plan as outlined above (5) Chronic kidney disease, stage 3 Conclusion/Plan: Stable. It appears that his baseline creatinine is about 1.5. Currently 1.6. He will be placed on some gentle hydration as he will be n.p.o. and he will have a chemistry panel in the morning. (6) Hyperlipidemia Conclusion/Plan: I will hold his statin medication for now. It can be restarted at discharge. (7) BPH (benign prostatic hyperplasia) Conclusion/Plan: Continue Flomax 0.4 mg daily (8) Hyperglycemia Conclusion/Plan: No history of diabetes. Likely reactive. (9) Hyponatremia Conclusion/Plan: Quite mild. He will have a chemistry panel in the morning (10) Ambulatory dysfunction Conclusion/Plan: Will have physical therapy and Occupational Therapy evaluate him during this hospitalization - Lab Results Fish Bones: 02/02/24 10:41 02/02/24 10:41 - EKG Results EKG Interpreted Independently: Yes - Other Other Results/Comments: Disposition: At this point I fully expect the patient's hospitalization to expand greater than 2 midnights. I do hope that he will turn around and be able to be discharged within 96 hours. At this point cannot rule out that he might need transfer. It depends how he responds and what general surgery's recommend ations are. Time spent: 45 minutes
--- NOTE | 2024-02-02 17:21 | CONSULTATION NOTE ---
Surgery Consult - Consult Date Consult Date: 02/02/24 Requesting Provider: Herman Coe - Chief Complaint Chief Complaint: Abdominal pain - Home Meds/Allergies Home Medications: Patient History Medication Instructions Recorded Confirmed Simvastatin [Zocor] 20 mg PO DAILY 12/23/23 02/02/24 Tamsulosin [Flomax] 0.4 mg PO DAILY 12/23/23 02/02/24 Cholecalciferol [Vitamin D3] 50 mcg PO DAILY 02/02/24 02/02/24 Allergies/Adverse Reactions: Allergies Allergy/AdvReac Type Severity Reaction Status Date / Time No Known Drug Allergies Allergy Verified 02/02/24 10:15 - Vital Signs Vital Signs: Last Vital Signs Temp 98.2 F 02/02/24 16:00 Pulse 108 H 02/02/24 16:00 Resp 18 02/02/24 16:00 BP 114/61 02/02/24 16:00 Pulse Ox 92 02/02/24 16:37 O2 Flow Rate 1 02/02/24 16:37 Intake & Output: Intake & Output 01/30/24 01/31/24 02/01/24 02/02/24 23:59 23:59 23:59 23:59 Intake Total 1000 Balance 1000 - Lab Results Result Diagrams: 02/02/24 10:41 02/02/24 10:41 - Consultation Note Consultation Note: General Surgery Consultation Note Assessment: 1) Perforated sigmoid diverticulitis with pericolonic abscess ([place] Class Ib). The patient is not clinically septic and the abscess may respond to IV antibiotics and bowel rest Recommendation: 1) NPO except ice chips, popsicles, meds 2) IV Zosyn or Cipro/Flagyl 3) Follow clinical exam - if he responds to the antibiotics, his abdominal discomfort should resolve. 4) Check with IR tomorrow to determine if there is a window for IR drainage. 5) Surgery will follow <><><><><><><><><><> Reason for Consultation Intra-abdominal abscess Chief Complaint Abdominal pain WAQAR Tubbs is a 68 year old male with about a week of constipation and abdominal pain. The discomfort worsened and he was brought to the ED for evaluation today. He denies nausea, vomiting, fever or chills. 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 Past Medical History AVM -> SAH -> Dementia Increased cholesterol BPH Coronary Artery Calcifications Past Surgical History None Family History Diverticulitis Social History Lives in an assisted-living facility; Does not smoke, drink alcohol or use recreational drugs Current Medications See "Medication" section Allergies See "Allergy" section ROS Pertinent positives Abdominal pain, constipation All other reviewed systems negative Physical Examination Vital Signs: See "Vital Signs" section BMI: 25 GENERAL APPEARANCE: Normal development, normal body habitus, normal grooming PSYCHIATRIC: AAO; Comfortable; Pleasant, Cooperative, Poor historian EYES: Pupils equal, round and reactive to light, sclera anicteric EARS, NOSE, MOUTH, THROAT: Hearing normal, Oral mucous membranes moist and without lesions; NECK: No crepitus, lymphadenopathy, or thyromegaly LUNGS: Clear to auscultation without wheezing; No use of accessory muscles to breathe CARDIOVASCULAR: Heart-NSR without murmurs; Palpable carotid arteries - no bruits; Femoral, Pedal pulses palpable; Peripheral edema absent ABD: Soft, distended, tenderness to palpation with associated fullness in the sub-umbilical region; BS present LYMPHATIC: Neck, Axillae, Groin no palpable adenopathy EXTREMITIES: No clubbing, cyanosis, infections SKIN: Anicteric; No rashes, lesions, Ulcerations Labs See "Labs" section Imaging 4 cm abscess adjacent to sigmoid colon which has inflammatory changes. No image evidence of pneumoperitoneum. See official report All images were personally reviewed by me for this encounter. Shawn Bullard MD, FACS General Surgery Service [phone]
[2024-02-02] MEDS: D5.45NS W/20 MEQ KCL 1,000 ML IV SCH (18:17)
[2024-02-02] MEDS ORDERED: HEPARIN 5,000 UNIT/ML VIAL SUBQ SCH (21:00)
[2024-02-02] MEDS: PIPERACILLIN/TAZOBACTAM 3.375 GM in SODIUM CHLORIDE 0.9% MINIBAG 100 ML IV SCH (21:08)
[2024-02-03] MEDS: SODIUM CHLORIDE FLUSH 0.9% 10 ML SYRINGE IVP SCH (01:00)
--- NOTE | 2024-02-03 07:01 | PROVIDER PROGRESS NOTE ---
Subjective - General Admit Date: 02/02/24 - Review of Systems All Other Systems: positive: Reviewed and negative Objective - Patient Data Vital Signs: Vital Signs x48h Temp Pulse Resp BP Pulse Ox 02/03/24 04:17 97.9 F 83 16 112/57 L 93 02/03/24 00:00 98.6 F 91 100/55 L 92 Weight: Weight 02/01/24 02/02/24 02/03/24 23:59 23:59 23:59 Weight (kg) 75 kg Intake & Output: Intake and Output Totals x24h 02/01/24 02/02/24 02/03/24 23:59 23:59 23:59 Intake Total 1100 848.608 Output Total 150 230 Balance 950 618.608 - Lab Results Lab Results: 02/02/24 10:41 02/02/24 10:41 Other Lab Results: Lab Results x24hrs 02/02/24 02/02/24 02/02/24 Range/Units 10:41 10:41 10:32 WBC 9.9 (4.8-10.8) x10^3/uL RBC 5.12 (4.70-6.10) 10^6/uL Hgb 15.1 (14.0-18.0) g/dL Hct 47.9 (42.0-52.0) % MCV 93.6 (80.0-94.0) fL MCH 29.5 (27.0-31.0) pg MCHC 31.5 L (32.0-36.0) g/dL RDW 12.7 (12.0-15.0) % Plt Count 253 (130-450) 10^3/uL MPV 10.5 (7.4-11.4) fL Neut # (Auto) 7.1 H (1.5-6.6) 10^3/uL Lymph # (Auto) 2.0 (1.5-3.5) 10^3/uL [place] # (Auto) 0.7 (0.0-1.0) 10^3/uL Eos # (Auto) 0.1 (0.0-0.7) 10^3/uL Baso # (Auto) 0.1 (0.0-0.1) 10^3/uL Absolute Nucleated RBC 0.00 x10^3/uL Nucleated RBC % 0.0 /100WBC Sodium 134 L (135-145) mmol/L Potassium 4.3 (3.5-4.5) mmol/L Chloride 98 L (101-111) mmol/L Carbon Dioxide 31 (21-32) mmol/L Anion Gap 5.0 L (6-13) BUN 27 H (6-20) mg/dL Creatinine 1.6 H (0.6-1.3) mg/dL Estimated GFR (MDRD) 43 L (>89) Glucose 125 H (74-104) mg/dL Calcium 9.7 (8.5-10.3) mg/dL Total Bilirubin 0.8 (0.2-1.0) mg/dL AST 28 (10-42) IU/L ALT 46 (10-60) IU/L Alkaline Phosphatase 120 (42-121) IU/L Total Protein 7.5 (6.4-8.9) g/dL Albumin 4.3 (3.2-5.5) g/dL Globulin 3.2 (2.1-4.2) g/dL Albumin/Globulin Ratio 1.3 (1.0-2.2) Lipase 14 (11-82) U/L Urine Color DARK YELLOW Urine Clarity CLEAR (CLEAR) Urine pH 6.0 (5.0-7.5) PH Ur Specific [place] 1.025 (1.002-1.030) Urine Protein NEGATIVE (NEGATIVE) mg/dL Urine Glucose (UA) NEGATIVE (NEGATIVE) mg/dL Urine Ketones TRACE (NEGATIVE) mg/dL Urine Occult Blood NEGATIVE (NEGATIVE) Urine Nitrite NEGATIVE (NEGATIVE) Urine Bilirubin SMALL H (NEGATIVE) Urine Urobilinogen 0.2 (NORMAL) (NORMAL) E.U./dL Ur Leukocyte Esterase NEGATIVE (NEGATIVE) Ur Microscopic Review NOT INDICATED Urine Culture Comments NOT INDICATED - Current Medications Current Medications: Current Medications Generic Name Dose Route Start Last Admin Trade Name Freq PRN Reason Stop Dose Admin Piperacillin Sod/Tazobactam 100 mls @ 25 mls/hr 02/02/24 20:00 02/03/24 04:28 Sod 3.375 gm/ Sodium Chloride IV 25 mls/hr Q8H REBEL Administration Potassium Chloride/Dextrose/Sod Cl 1,000 mls @ 83.333 mls/hr 02/02/24 18:00 02/03/24 03:16 D5.45ns W/20 Meq Kcl IV 83.333 mls/hr .Q12H REBEL Administration Sodium Chloride 10 ml 02/03/24 01:00 02/03/24 01:00 Sodium Chloride Flush 0.9% 10 Ml Syringe IVP 10 ml 0100,0900,1700 REBEL Administration Impression/Plan - Problem List Problem List: General Surgery Progress Note S: Comfortable. Less abdominal pain today. No BM yet. No nausea or vomiting. O: VSS, afeb; Lungs clear; Heart NST; Abd soft, non-distended, + BS, minimal suprapubic tenderness and less fullness compared to yesterday Labs: CBC WNL A: Perforated sigmoid diverticulitis with localized abscess - clinically improved P: May start clear liquids; Continue IV Zosyn; Ambulate; Nutritional supplements (Ensure or Boost) if available Shawn Bullard MD, FACS General Surgery Service
[2024-02-03 08:20] LABS: BASOPHILS # (AUTO) 0.1 10^3/uL (0.0-0.1); BASOPHILS % (AUTO) 0.6 %; EOSINOPHILS # (AUTO) 0.3 10^3/uL (0.0-0.7); EOSINOPHILS % (AUTO) 3.2 %; HCT - HEMATOCRIT 41.7 % (42.0-52.0); HGB - HEMOGLOBIN 13.4 g/dL (14.0-18.0); LYMPHOCYTES # (AUTO) 1.9 10^3/uL (1.5-3.5); LYMPHOCYTES % (AUTO) 18.4 %; MEAN CORPUSCULAR HEMOGLOBIN 30.8 pg (27.0-31.0); MEAN CORPUSCULAR HGB CONC 32.1 g/dL (32.0-36.0); MEAN CORPUSCULAR VOLUME 95.9 fL (80.0-94.0); MEAN PLATELET VOLUME 10.9 fL (7.4-11.4); MONOCYTES # (AUTO) 0.7 10^3/uL (0.0-1.0); MONOCYTES % (AUTO) 6.7 %; NEUTROPHILS # (AUTO) 7.1 10^3/uL (1.5-6.6); NEUTROPHILS % (AUTO) 70.9 %; PLT - PLATELET COUNT 192 10^3/uL (130-450); RED BLOOD COUNT 4.35 10^6/uL (4.70-6.10); RED CELL DISTRIBUTION WIDTH 13.1 % (12.0-15.0); WHITE BLOOD COUNT 10.1 x10^3/uL (4.8-10.8)
[2024-02-03 08:29] LABS: ALBUMIN 3.3 g/dL (3.2-5.5); BILIRUBIN,DIRECT 0.52 mg/dL (0.03-0.18); BILIRUBIN,TOTAL 1.2 mg/dL (0.2-1.0); CALCIUM 8.2 mg/dL (8.5-10.3); CREATININE 1.4 mg/dL (0.6-1.3); MAGNESIUM 2.2 mg/dL (1.7-2.3); PHOSPHORUS 2.2 mg/dL (2.5-5.0); TOTAL PROTEIN 6.1 g/dL (6.4-8.9)
[2024-02-03] MEDS: TAMSULOSIN 0.4 MG CAPSULE PO SCH (08:52)
--- NOTE | 2024-02-03 09:00 | PROVIDER PROGRESS NOTE ---
<Jose ManuelTatianna - Last Filed: 02/03/24 13:43> Subjective - Prog Note Date Prog Note Date: 02/03/24 Prog Note Time: 08:57 - Subjective Pt reports feeling: Improved Subjective: The patient is alert and in a pleasant mood this morning. He stated that his abdominal pain has improved. Yesterday when he pushed on his abdomen it was "firm and painful;" however today when he pushes on it there is no pain. His sister, Irma, also noted that today his urine flow has returned to normal; yesterday he was experiencing a decrease in flow which Irma attributes to his abdominal pain. Last bowel movement was yesterday in the emergency department after enema use. Current Medications - Current Medications Current Medications: Medications Acetaminophen (Acetaminophen 325 Mg Tablet) 650 mg PO Q4HR PRN PRN Reason: Pain 1 to 4, or Fever Hydromorphone HCl (Hydromorphone 0.5 Mg/0.5 Ml Syringe) 0.5 mg IVP Q2H PRN PRN Reason: Pain 8 to 10 Olanzapine (Olanzapine Odt 5 Mg Tablet) 5 mg TL HS PRN PRN Reason: Agitation Ondansetron HCl (Ondansetron 4 Mg/2 Ml Vial) 4 mg IVP Q6HR PRN PRN Reason: Nausea / Vomiting Oxycodone HCl (Oxycodone 5 Mg Tablet) 5 mg PO Q4HR PRN PRN Reason: Pain 5 to 7 Piperacillin Sod/Tazobactam (Sod 3.375 gm/ Sodium Chloride) 100 mls @ 25 mls/hr IV Q8H [facility] Last Admin: 02/03/24 08:52 Dose: Infused Tamsulosin HCl (Tamsulosin 0.4 Mg Capsule) 0.4 mg PO DAILY [facility] Last Admin: 02/03/24 08:52 Dose: 0.4 mg Objective - Vital Signs/Intake & Output Reviewed Vital Signs: Yes Vital Signs: Vital Signs x48h Temp Pulse Resp BP Pulse Ox 02/03/24 04:17 36.6 C 83 16 112/57 L 93 Intake & Output: Intake & Output 01/31/24 02/01/24 02/02/24 02/03/24 23:59 23:59 23:59 23:59 Intake Total 1100 948.608 Output Total 150 230 Balance 950 718.608 - Objective General Appearance: positive: No acute distress, Alert Eyes Bilateral: positive: Normal inspection, PERRL ENT: positive: ENT inspection nml Neck: positive: Nml inspection Respiratory: positive: Chest non-tender Cardiovascular: positive: Regular rate & rhythm, No murmur, No gallop Abdomen: positive: Nml bowel sounds, Tenderness (mild tenderness in suprapubic region) Skin: positive: Color nml Extremities: positive: Non-tender Neurologic/Psychiatric: positive: Oriented x3 - Lab Results Fish Bones: 02/03/24 07:55 02/03/24 07:55 Other Labs: Lab Results x24hrs 02/03/24 02/03/24 02/02/24 Range/Units 07:55 07:55 10:41 WBC 10.1 (4.8-10.8) x10^3/uL RBC 4.35 L (4.70-6.10) 10^6/uL Hgb 13.4 L (14.0-18.0) g/dL Hct 41.7 L (42.0-52.0) % MCV 95.9 H (80.0-94.0) fL MCH 30.8 (27.0-31.0) pg MCHC 32.1 (32.0-36.0) g/dL RDW 13.1 (12.0-15.0) % Plt Count 192 (130-450) 10^3/uL MPV 10.9 (7.4-11.4) fL Neut # (Auto) 7.1 H (1.5-6.6) 10^3/uL Lymph # (Auto) 1.9 (1.5-3.5) 10^3/uL Wells # (Auto) 0.7 (0.0-1.0) 10^3/uL Eos # (Auto) 0.3 (0.0-0.7) 10^3/uL Baso # (Auto) 0.1 (0.0-0.1) 10^3/uL Absolute Nucleated RBC 0.00 x10^3/uL Nucleated RBC % 0.0 /100WBC Sodium 135 134 L (135-145) mmol/L Potassium 4.0 4.3 (3.5-4.5) mmol/L Chloride 106 98 L (101-111) mmol/L Carbon Dioxide 24 31 (21-32) mmol/L Anion Gap 5.0 L 5.0 L (6-13) BUN 20 27 H (6-20) mg/dL Creatinine 1.4 H 1.6 H (0.6-1.3) mg/dL Estimated GFR (MDRD) 51 L 43 L (>89) Glucose 147 H 125 H (74-104) mg/dL Calcium 8.2 L 9.7 (8.5-10.3) mg/dL Phosphorus 2.2 L (2.5-5.0) mg/dL Magnesium 2.2 (1.7-2.3) mg/dL Total Bilirubin 1.2 H 0.8 (0.2-1.0) mg/dL Direct Bilirubin 0.52 H (0.03-0.18) mg/dL AST 38 28 (10-42) IU/L ALT 47 46 (10-60) IU/L Alkaline Phosphatase 94 120 (42-121) IU/L Total Protein 6.1 L 7.5 (6.4-8.9) g/dL Albumin 3.3 4.3 (3.2-5.5) g/dL Globulin 2.8 3.2 (2.1-4.2) g/dL Albumin/Globulin Ratio 1.3 (1.0-2.2) Lipase 14 (11-82) U/L Urine Color Urine Clarity (CLEAR) Urine pH (5.0-7.5) PH Ur Specific [place] (1.002-1.030) Urine Protein (NEGATIVE) mg/dL Urine Glucose (UA) (NEGATIVE) mg/dL Urine Ketones (NEGATIVE) mg/dL Urine Occult Blood (NEGATIVE) Urine Nitrite (NEGATIVE) Urine Bilirubin (NEGATIVE) Urine Urobilinogen (NORMAL) E.U./dL Ur Leukocyte Esterase (NEGATIVE) Ur Microscopic Review Urine Culture Comments 02/02/24 02/02/24 Range/Units 10:41 10:32 WBC 9.9 (4.8-10.8) x10^3/uL RBC 5.12 (4.70-6.10) 10^6/uL Hgb 15.1 (14.0-18.0) g/dL Hct 47.9 (42.0-52.0) % MCV 93.6 (80.0-94.0) fL MCH 29.5 (27.0-31.0) pg MCHC 31.5 L (32.0-36.0) g/dL RDW 12.7 (12.0-15.0) % Plt Count 253 (130-450) 10^3/uL MPV 10.5 (7.4-11.4) fL Neut # (Auto) 7.1 H (1.5-6.6) 10^3/uL Lymph # (Auto) 2.0 (1.5-3.5) 10^3/uL Wells # (Auto) 0.7 (0.0-1.0) 10^3/uL Eos # (Auto) 0.1 (0.0-0.7) 10^3/uL Baso # (Auto) 0.1 (0.0-0.1) 10^3/uL Absolute Nucleated RBC 0.00 x10^3/uL Nucleated RBC % 0.0 /100WBC Sodium (135-145) mmol/L Potassium (3.5-4.5) mmol/L Chloride (101-111) mmol/L Carbon Dioxide (21-32) mmol/L Anion Gap (6-13) BUN (6-20) mg/dL Creatinine (0.6-1.3) mg/dL Estimated GFR (MDRD) (>89) Glucose (74-104) mg/dL Calcium (8.5-10.3) mg/dL Phosphorus (2.5-5.0) mg/dL Magnesium (1.7-2.3) mg/dL Total Bilirubin (0.2-1.0) mg/dL Direct Bilirubin (0.03-0.18) mg/dL AST (10-42) IU/L ALT (10-60) IU/L Alkaline Phosphatase (42-121) IU/L Total Protein (6.4-8.9) g/dL Albumin (3.2-5.5) g/dL Globulin (2.1-4.2) g/dL Albumin/Globulin Ratio (1.0-2.2) Lipase (11-82) U/L Urine Color DARK YELLOW Urine Clarity CLEAR (CLEAR) Urine pH 6.0 (5.0-7.5) PH Ur Specific [place] 1.025 (1.002-1.030) Urine Protein NEGATIVE (NEGATIVE) mg/dL Urine Glucose (UA) NEGATIVE (NEGATIVE) mg/dL Urine Ketones TRACE (NEGATIVE) mg/dL Urine Occult Blood NEGATIVE (NEGATIVE) Urine Nitrite NEGATIVE (NEGATIVE) Urine Bilirubin SMALL H (NEGATIVE) Urine Urobilinogen 0.2 (NORMAL) (NORMAL) E.U./dL Ur Leukocyte Esterase NEGATIVE (NEGATIVE) Ur Microscopic Review NOT INDICATED Urine Culture Comments NOT INDICATED ABX Reporting Has patient been on IV antibiotics over the past 48 hours?: Yes Sepsis Event Note (H) - Sepsis Criteria Sepsis Criteria: Recorded Heart Rate greater than 90 bpm, Respiratory: Increasing oxygen requirements Assessment/Plan - Problem List (1) Abscess of sigmoid colon due to diverticulitis Impression: Currently on day 2 of IV Zosyn. Pain level significantly improved with antibiotics. Continue NPO until evaluation by interventional radiology for drainage of abscess. Patient has been consulted by general surgery this morning - plan to start ambulation and clear liquids after IR consultation. (2) History of subarachnoid hemorrhage Impression: History of two subarachonoid hemorrhages in the past. Will avoid blood thinners. (3) Hypoxia Impression: No respiratory distress, appears comfortable. Oxygen saturation at 93% on room air. (4) Chronic kidney disease, stage 3 Impression: Stable. Patient continues to be on NPO. Baseline creatinine is about 1.5, this morning it was 1.4. (5) Hyperlipidemia Impression: Holding statin medication during his admission. Will plan to restart at discharge. (6) Intracranial arteriovenous malformation Impression: See above. (7) BPH (benign prostatic hyperplasia) Impression: Stable. Continue Flomax 0.4 mg daily. (8) Hyperglycemia Impression: No history of diabetes. Glucose continues to be elevated this morning; likely reactive. (9) Hyponatremia Impression: Currently resovled. CMP this morning revealed sodium level within normal range at 135 mmol/L. (10) Ambulatory dysfunction Impression: Will plan for patient to ambulate today. Will have PT/OT evaluate him during his stay. <Britt Hein - Last Filed: 02/04/24 07:42> Objective - Vital Signs/Intake & Output Vital Signs: Vital Signs x48h Temp Pulse Resp BP Pulse Ox 02/04/24 04:24 36.7 C 74 16 116/62 92 02/04/24 00:31 36.5 C 80 16 123/70 94 Intake & Output: Intake & Output 02/01/24 02/02/24 02/03/24 02/04/24 23:59 23:59 23:59 23:59 Intake Total 1100 3278.608 1276.385 Output Total 916 530 8573 Balance 950 2548.608 226.385 - Lab Results Fish Bones: 02/04/24 05:47 02/04/24 05:47 Other Labs: Lab Results x24hrs 02/04/24 02/04/24 02/03/24 Range/Units 05:47 05:47 07:55 WBC 7.4 (4.8-10.8) x10^3/uL RBC 4.44 L (4.70-6.10) 10^6/uL Hgb 12.9 L (14.0-18.0) g/dL Hct 42.0 (42.0-52.0) % MCV 94.6 H (80.0-94.0) fL MCH 29.1 (27.0-31.0) pg MCHC 30.7 L (32.0-36.0) g/dL RDW 12.9 (12.0-15.0) % Plt Count 209 (130-450) 10^3/uL MPV 11.0 (7.4-11.4) fL Neut # (Auto) 4.2 (1.5-6.6) 10^3/uL Lymph # (Auto) 2.0 (1.5-3.5) 10^3/uL Wells # (Auto) 0.6 (0.0-1.0) 10^3/uL Eos # (Auto) 0.6 (0.0-0.7) 10^3/uL Baso # (Auto) 0.1 (0.0-0.1) 10^3/uL Absolute Nucleated RBC 0.00 x10^3/uL Nucleated RBC % 0.0 /100WBC Sodium 138 135 (135-145) mmol/L Potassium 4.5 4.0 (3.5-4.5) mmol/L Chloride 111 106 (101-111) mmol/L Carbon Dioxide 24 24 (21-32) mmol/L Anion Gap 3.0 L 5.0 L (6-13) BUN 10 20 (6-20) mg/dL Creatinine 1.3 1.4 H (0.6-1.3) mg/dL Estimated GFR (MDRD) 55 L 51 L (>89) Glucose 107 H 147 H (74-104) mg/dL Calcium 8.4 L 8.2 L (8.5-10.3) mg/dL Phosphorus 2.3 L 2.2 L (2.5-5.0) mg/dL Magnesium 2.1 2.2 (1.7-2.3) mg/dL Total Bilirubin 0.7 1.2 H (0.2-1.0) mg/dL Direct Bilirubin 0.18 0.52 H (0.03-0.18) mg/dL AST 25 38 (10-42) IU/L ALT 40 47 (10-60) IU/L Alkaline Phosphatase 103 94 (42-121) IU/L Total Protein 6.1 L 6.1 L (6.4-8.9) g/dL Albumin 3.2 3.3 (3.2-5.5) g/dL Globulin 2.9 2.8 (2.1-4.2) g/dL 06// Range/Units 07:55 WBC 10.1 (4.8-10.8) x10^3/uL RBC 4.35 L (4.70-6.10) 10^6/uL Hgb 13.4 L (14.0-18.0) g/dL Hct 41.7 L (42.0-52.0) % MCV 95.9 H (80.0-94.0) fL MCH 30.8 (27.0-31.0) pg MCHC 32.1 (32.0-36.0) g/dL RDW 13.1 (12.0-15.0) % Plt Count 192 (130-450) 10^3/uL MPV 10.9 (7.4-11.4) fL Neut # (Auto) 7.1 H (1.5-6.6) 10^3/uL Lymph # (Auto) 1.9 (1.5-3.5) 10^3/uL Wells # (Auto) 0.7 (0.0-1.0) 10^3/uL Eos # (Auto) 0.3 (0.0-0.7) 10^3/uL Baso # (Auto) 0.1 (0.0-0.1) 10^3/uL Absolute Nucleated RBC 0.00 x10^3/uL Nucleated RBC % 0.0 /100WBC Sodium (135-145) mmol/L Potassium (3.5-4.5) mmol/L Chloride (101-111) mmol/L Carbon Dioxide (21-32) mmol/L Anion Gap (6-13) BUN (6-20) mg/dL Creatinine (0.6-1.3) mg/dL Estimated GFR (MDRD) (>89) Glucose (74-104) mg/dL Calcium (8.5-10.3) mg/dL Phosphorus (2.5-5.0) mg/dL Magnesium (1.7-2.3) mg/dL Total Bilirubin (0.2-1.0) mg/dL Direct Bilirubin (0.03-0.18) mg/dL AST (10-42) IU/L ALT (10-60) IU/L Alkaline Phosphatase (42-121) IU/L Total Protein (6.4-8.9) g/dL Albumin (3.2-5.5) g/dL Globulin (2.1-4.2) g/dL Assessment/Plan - Problem List (10) Ambulatory dysfunction Impression: I discussed this case with PA student and I am in agreement with the assessment and plan
[2024-02-04 06:10] LABS: BASOPHILS # (AUTO) 0.1 10^3/uL (0.0-0.1); BASOPHILS % (AUTO) 0.7 %; EOSINOPHILS # (AUTO) 0.6 10^3/uL (0.0-0.7); EOSINOPHILS % (AUTO) 7.6 %; HGB - HEMOGLOBIN 12.9 g/dL (14.0-18.0); LYMPHOCYTES % (AUTO) 27.1 %; MEAN CORPUSCULAR HEMOGLOBIN 29.1 pg (27.0-31.0); MEAN CORPUSCULAR HGB CONC 30.7 g/dL (32.0-36.0); MEAN CORPUSCULAR VOLUME 94.6 fL (80.0-94.0); MONOCYTES # (AUTO) 0.6 10^3/uL (0.0-1.0); MONOCYTES % (AUTO) 8.1 %; NEUTROPHILS # (AUTO) 4.2 10^3/uL (1.5-6.6); NEUTROPHILS % (AUTO) 56.2 %; PLT - PLATELET COUNT 209 10^3/uL (130-450); RED BLOOD COUNT 4.44 10^6/uL (4.70-6.10); RED CELL DISTRIBUTION WIDTH 12.9 % (12.0-15.0); WHITE BLOOD COUNT 7.4 x10^3/uL (4.8-10.8)
[2024-02-04 06:31] LABS: ALBUMIN 3.2 g/dL (3.2-5.5); BILIRUBIN,DIRECT 0.18 mg/dL (0.03-0.18); BILIRUBIN,TOTAL 0.7 mg/dL (0.2-1.0); CALCIUM 8.4 mg/dL (8.5-10.3); CREATININE 1.3 mg/dL (0.6-1.3); MAGNESIUM 2.1 mg/dL (1.7-2.3); PHOSPHORUS 2.3 mg/dL (2.5-5.0); POTASSIUM 4.5 mmol/L (3.5-4.5); TOTAL PROTEIN 6.1 g/dL (6.4-8.9)
--- NOTE | 2024-02-04 08:25 | PROVIDER PROGRESS NOTE ---
<Tatianna Richard - Last Filed: 02/04/24 11:15> Subjective - Prog Note Date Prog Note Date: 02/04/24 Prog Note Time: 08:10 - Subjective Pt reports feeling: Improved Subjective: Patient stated his stomach pain feels better. He has been tolerating a clear liquid diet and is hungry for food. Has been passing gas, but has not had a BM since he was in the ED. Current Medications - Current Medications Current Medications: Medications Olanzapine (Olanzapine Odt 5 Mg Tablet) 5 mg TL HS PRN PRN Reason: Agitation Acetaminophen (Acetaminophen 325 Mg Tablet) 650 mg PO Q4HR PRN PRN Reason: Pain 1 to 4, or Fever Hydromorphone HCl (Hydromorphone 0.5 Mg/0.5 Ml Syringe) 0.5 mg IVP Q2H PRN PRN Reason: Pain 8 to 10 Ondansetron HCl (Ondansetron 4 Mg/2 Ml Vial) 4 mg IVP Q6HR PRN PRN Reason: Nausea / Vomiting Oxycodone HCl (Oxycodone 5 Mg Tablet) 5 mg PO Q4HR PRN PRN Reason: Pain 5 to 7 Piperacillin Sod/Tazobactam (Sod 3.375 gm/ Sodium Chloride) 100 mls @ 25 mls/hr IV Q8H [facility] Last Admin: 02/04/24 09:48 Dose: Infused Tamsulosin HCl (Tamsulosin 0.4 Mg Capsule) 0.4 mg PO DAILY [facility] Last Admin: 02/04/24 09:48 Dose: 0.4 mg Objective - Vital Signs/Intake & Output Reviewed Vital Signs: Yes Vital Signs: Vital Signs x48h Temp Pulse Resp BP Pulse Ox 02/04/24 04:24 36.7 C 74 16 116/62 92 02/04/24 00:31 36.5 C 80 16 123/70 94 Intake & Output: Intake & Output 02/01/24 02/02/24 02/03/24 02/04/24 23:59 23:59 23:59 23:59 Intake Total 1100 3278.608 1276.385 Output Total 446 244 8219 Balance 950 2548.608 226.385 - Objective General Appearance: positive: No acute distress, Alert Eyes Bilateral: positive: Normal inspection ENT: positive: ENT inspection nml Neck: positive: Nml inspection Respiratory: positive: Chest non-tender, No respiratory distress, Breath sounds nml Cardiovascular: positive: Regular rate & rhythm, No murmur, No gallop Abdomen: positive: Nml bowel sounds, Tenderness (mild tenderness of lower abdomen) Back: positive: Nml inspection Extremities: positive: Non-tender Neurologic/Psychiatric: positive: Oriented x3 - Lab Results Fish Bones: 02/04/24 05:47 02/04/24 05:47 Other Labs: Lab Results x24hrs 02/04/24 02/04/24 02/03/24 Range/Units 05:47 05:47 07:55 WBC 7.4 (4.8-10.8) x10^3/uL RBC 4.44 L (4.70-6.10) 10^6/uL Hgb 12.9 L (14.0-18.0) g/dL Hct 42.0 (42.0-52.0) % MCV 94.6 H (80.0-94.0) fL MCH 29.1 (27.0-31.0) pg MCHC 30.7 L (32.0-36.0) g/dL RDW 12.9 (12.0-15.0) % Plt Count 209 (130-450) 10^3/uL MPV 11.0 (7.4-11.4) fL Neut # (Auto) 4.2 (1.5-6.6) 10^3/uL Lymph # (Auto) 2.0 (1.5-3.5) 10^3/uL [place] # (Auto) 0.6 (0.0-1.0) 10^3/uL Eos # (Auto) 0.6 (0.0-0.7) 10^3/uL Baso # (Auto) 0.1 (0.0-0.1) 10^3/uL Absolute Nucleated RBC 0.00 x10^3/uL Nucleated RBC % 0.0 /100WBC Sodium 138 135 (135-145) mmol/L Potassium 4.5 4.0 (3.5-4.5) mmol/L Chloride 111 106 (101-111) mmol/L Carbon Dioxide 24 24 (21-32) mmol/L Anion Gap 3.0 L 5.0 L (6-13) BUN 10 20 (6-20) mg/dL Creatinine 1.3 1.4 H (0.6-1.3) mg/dL Estimated GFR (MDRD) 55 L 51 L (>89) Glucose 107 H 147 H (74-104) mg/dL Calcium 8.4 L 8.2 L (8.5-10.3) mg/dL Phosphorus 2.3 L 2.2 L (2.5-5.0) mg/dL Magnesium 2.1 2.2 (1.7-2.3) mg/dL Total Bilirubin 0.7 1.2 H (0.2-1.0) mg/dL Direct Bilirubin 0.18 0.52 H (0.03-0.18) mg/dL AST 25 38 (10-42) IU/L ALT 40 47 (10-60) IU/L Alkaline Phosphatase 103 94 (42-121) IU/L Total Protein 6.1 L 6.1 L (6.4-8.9) g/dL Albumin 3.2 3.3 (3.2-5.5) g/dL Globulin 2.9 2.8 (2.1-4.2) g/dL 02/03/24 Range/Units 07:55 WBC 10.1 (4.8-10.8) x10^3/uL RBC 4.35 L (4.70-6.10) 10^6/uL Hgb 13.4 L (14.0-18.0) g/dL Hct 41.7 L (42.0-52.0) % MCV 95.9 H (80.0-94.0) fL MCH 30.8 (27.0-31.0) pg MCHC 32.1 (32.0-36.0) g/dL RDW 13.1 (12.0-15.0) % Plt Count 192 (130-450) 10^3/uL MPV 10.9 (7.4-11.4) fL Neut # (Auto) 7.1 H (1.5-6.6) 10^3/uL Lymph # (Auto) 1.9 (1.5-3.5) 10^3/uL [place] # (Auto) 0.7 (0.0-1.0) 10^3/uL Eos # (Auto) 0.3 (0.0-0.7) 10^3/uL Baso # (Auto) 0.1 (0.0-0.1) 10^3/uL Absolute Nucleated RBC 0.00 x10^3/uL Nucleated RBC % 0.0 /100WBC Sodium (135-145) mmol/L Potassium (3.5-4.5) mmol/L Chloride (101-111) mmol/L Carbon Dioxide (21-32) mmol/L Anion Gap (6-13) BUN (6-20) mg/dL Creatinine (0.6-1.3) mg/dL Estimated GFR (MDRD) (>89) Glucose (74-104) mg/dL Calcium (8.5-10.3) mg/dL Phosphorus (2.5-5.0) mg/dL Magnesium (1.7-2.3) mg/dL Total Bilirubin (0.2-1.0) mg/dL Direct Bilirubin (0.03-0.18) mg/dL AST (10-42) IU/L ALT (10-60) IU/L Alkaline Phosphatase (42-121) IU/L Total Protein (6.4-8.9) g/dL Albumin (3.2-5.5) g/dL Globulin (2.1-4.2) g/dL ABX Reporting Has patient been on IV antibiotics over the past 48 hours?: Yes Sepsis Event Note (H) - Sepsis Criteria Sepsis Criteria: Recorded Heart Rate greater than 90 bpm, Respiratory: Increasing oxygen requirements Assessment/Plan - Problem List (1) Abscess of sigmoid colon due to diverticulitis Impression: CT scan was reviewed by the radiologist and Dr. Bullard. Per Dr. Bullard we will avoid percutaneous drainage unless he fails medical essie gement since the fluid in the cavity is small and the cavity size is almost too small to accept a pigtail catheter. Continue IV Zosyn - currently on day 3. Diet advanced from clear liquids to full liquids this morning for breakfast. Continue ambulation with PT/assistance as needed. Will plan to start Miralax if no bowel movement by 1-2PM. Will consider discharge tomorrow if he continues to improve, have a bowel movement, and tolerate diet advancement. (2) History of subarachnoid hemorrhage Impression: History of two subarachonoid hemorrhages in the past. Will avoid blood thinners. (4) Hyperlipidemia Impression: Patient's sister would like him to continue statin medication if possible. He takes simvastatin 20mg orally at home. Ordered atorvastatin 10mg daily. (5) Intracranial arteriovenous malformation Impression: See above. (6) BPH (benign prostatic hyperplasia) Impression: Stable. Continue Flomax 0.4 mg daily. (7) Ambulatory dysfunction Impression: Patient saw PT yesterday - he was able to ambulate down the [place] with a walker. Continue ambulation today with PT. (8) Hypoxia Impression: No respiratory distress, appears comfortable. Oxygen saturation at 92-95% on room air. (9) Hyponatremia Impression: Resolved. CMP this morning revealed sodium level within normal range at 138 mmol/L. (10) Hyperglycemia Impression: No history of diabetes. Glucose slightly elevated this morning at 107 mg/dL; likely reactive. <Britt Hein - Last Filed: 02/04/24 13:40> Objective - Vital Signs/Intake & Output Vital Signs: Vital Signs x48h Temp Pulse Resp BP Pulse Ox 02/04/24 12:16 36.5 C 77 16 150/69 H 95 02/04/24 08:55 36.6 C 75 16 131/57 H 95 Intake & Output: Intake & Output 02/01/24 02/02/24 02/03/24 02/04/24 23:59 23:59 23:59 23:59 Intake Total 1100 3278.608 1856.385 Output Total 606 384 3954 Balance 950 2548.608 606.385 - Lab Results Fish Bones: 02/04/24 05:47 02/04/24 05:47 Other Labs: Lab Results x24hrs 02/04/24 02/04/24 Range/Units 05:47 05:47 WBC 7.4 (4.8-10.8) x10^3/uL RBC 4.44 L (4.70-6.10) 10^6/uL Hgb 12.9 L (14.0-18.0) g/dL Hct 42.0 (42.0-52.0) % MCV 94.6 H (80.0-94.0) fL MCH 29.1 (27.0-31.0) pg MCHC 30.7 L (32.0-36.0) g/dL RDW 12.9 (12.0-15.0) % Plt Count 209 (130-450) 10^3/uL MPV 11.0 (7.4-11.4) fL Neut # (Auto) 4.2 (1.5-6.6) 10^3/uL Lymph # (Auto) 2.0 (1.5-3.5) 10^3/uL [place] # (Auto) 0.6 (0.0-1.0) 10^3/uL Eos # (Auto) 0.6 (0.0-0.7) 10^3/uL Baso # (Auto) 0.1 (0.0-0.1) 10^3/uL Absolute Nucleated RBC 0.00 x10^3/uL Nucleated RBC % 0.0 /100WBC Sodium 138 (135-145) mmol/L Potassium 4.5 (3.5-4.5) mmol/L Chloride 111 (101-111) mmol/L Carbon Dioxide 24 (21-32) mmol/L Anion Gap 3.0 L (6-13) BUN 10 (6-20) mg/dL Creatinine 1.3 (0.6-1.3) mg/dL Estimated GFR (MDRD) 55 L (>89) Glucose 107 H (74-104) mg/dL Calcium 8.4 L (8.5-10.3) mg/dL Phosphorus 2.3 L (2.5-5.0) mg/dL Magnesium 2.1 (1.7-2.3) mg/dL Total Bilirubin 0.7 (0.2-1.0) mg/dL Direct Bilirubin 0.18 (0.03-0.18) mg/dL AST 25 (10-42) IU/L ALT 40 (10-60) IU/L Alkaline Phosphatase 103 (42-121) IU/L Total Protein 6.1 L (6.4-8.9) g/dL Albumin 3.2 (3.2-5.5) g/dL Globulin 2.9 (2.1-4.2) g/dL Assessment/Plan - Problem List (10) Ambulatory dysfunction Impression: I independently examined the patient today. I have discussed the case with the PA student and am in agreement with the assessment and plan
--- NOTE | 2024-02-04 08:32 | PROVIDER PROGRESS NOTE ---
Progress Note General Surgery Progress Note Admitting Diagnosis: Perforated sigmoid diverticulosis with abscess S: Comfortable; Tolerating a clear liquid diet. Hungry for something more than liquids. Passing flatus but no BM yest. Abdominal discomfort less. O: VSS afeb; AAO; In no distress; Abdomen is soft, distended and tymapanitic, non-tender WBC decreased from 10K to 7K Assessment: Perforated sigmoid diverticulitis with associated ashley-colonic abscess, clinically improved on IV antibiotics. I reviewed the CT with our radiologist and there is a potential window for abscess drainage but the amount of fluid in the cavity is small and the cavity size is almost too small to accept a pigtail catheter. As the patient is improving on IV antibiotics, I am of the opinion that we avoid percutaneous drainage unless he fails medical management. Recommendation: 1) Advance to full liquid diet; If no BM by 1-2 PM today, start daily Miralax 2) Continue IV antibiotics while an in-patient and switch to oral medication (Augmentin or Cipro/Flagyl) as an out-patient for a total of 10 days of antibiotic therapy. 3) Ambulate in [place] TID with assistance as needed 4) If he tolerates a diet advancement and has bowel activity, consider discharge later today or tomorrow 5) Surgery will follow Newton Bullard MD, FACS General Surgery Service
[2024-02-04] MEDS: NEUTRA-PHOS 250 MG TABLET PO SCH (09:48)
--- NOTE | 2024-02-04 13:59 | PROVIDER PROGRESS NOTE ---
Progress Note General Surgery Afternoon Progress Note S: Arley is doing well. He is tolerating a full liquid diet, has passed flatus from the rectum, and has minimal abdominal discomfort. He has no nausea or vomiting. He has ambulated in the hallway. O: VSS, afeb; AAO, Comfortable; Abd soft. Assessment: Sigmoid diverticulitis with perforation and localized abscess - Continued improvement Recommendation: I think he is ready for discharge to his assisted living facility. Neither he nor his sister is interested in the IR procedure at this time which I don't think is indicated as he has responded so well to the IV anti biotics. He should continue out-patient oral antibiotics with either Cipro/Flagyl or Augmentin for a total of 10 days of antibiotic coverage. He can be seen in follow-up in the surgery clinic ([phone]) in 10-14 days and should return to the ED in the meantime if he develops recurrence of his abdominal symptoms, fever, or chills. Newton Bullard MD, FACS General Surgery Service
[2024-02-04] MEDS: ATORVASTATIN 10 MG TABLET PO SCH (20:42)
[2024-02-05 05:43] LABS: BASOPHILS # (AUTO) 0.1 10^3/uL (0.0-0.1); BASOPHILS % (AUTO) 1.1 %; EOSINOPHILS # (AUTO) 0.5 10^3/uL (0.0-0.7); EOSINOPHILS % (AUTO) 7.1 %; HCT - HEMATOCRIT 42.7 % (42.0-52.0); HGB - HEMOGLOBIN 13.6 g/dL (14.0-18.0); LYMPHOCYTES # (AUTO) 2.5 10^3/uL (1.5-3.5); LYMPHOCYTES % (AUTO) 33.3 %; MEAN CORPUSCULAR HEMOGLOBIN 30.4 pg (27.0-31.0); MEAN CORPUSCULAR HGB CONC 31.9 g/dL (32.0-36.0); MEAN CORPUSCULAR VOLUME 95.3 fL (80.0-94.0); MONOCYTES # (AUTO) 0.6 10^3/uL (0.0-1.0); MONOCYTES % (AUTO) 7.9 %; NEUTROPHILS # (AUTO) 3.8 10^3/uL (1.5-6.6); NEUTROPHILS % (AUTO) 50.3 %; PLT - PLATELET COUNT 223 10^3/uL (130-450); RED BLOOD COUNT 4.48 10^6/uL (4.70-6.10); RED CELL DISTRIBUTION WIDTH 12.9 % (12.0-15.0); WHITE BLOOD COUNT 7.6 x10^3/uL (4.8-10.8)
[2024-02-05 06:02] LABS: ALBUMIN 3.3 g/dL (3.2-5.5); BILIRUBIN,DIRECT 0.2 mg/dL (0.03-0.18); BILIRUBIN,TOTAL 0.5 mg/dL (0.2-1.0); CALCIUM 8.8 mg/dL (8.5-10.3); CREATININE 1.3 mg/dL (0.6-1.3); PHOSPHORUS 3.3 mg/dL (2.5-5.0); POTASSIUM 4.1 mmol/L (3.5-4.5); TOTAL PROTEIN 6.3 g/dL (6.4-8.9)
--- NOTE | 2024-02-05 07:23 | PROVIDER PROGRESS NOTE ---
Progress Note General Surgery Progress Note S: AAO, no abdominal pain, passing stool from rectum, on a general diet O: VSS, afeb; AAO; Abdomen is soft, non-tender A: Perforated sigmoid diverticulitis with localized abscess - clinically resolved Recommendation: 1) Discharge to Assisted living facility 2) Continue oral antibiotics (Augmentin or Cipro/Flagyl) for 7 days; Diet as tolerated otherwise 3) Add fiber (Metamucil, Citrucel, Benefiber, Equate, etc) to diet 4) Patient and sister prefer follow-up with their PCP in [place] in 7-10 days. The General Surgery Service will sign off of case today. Please do not hesitate to contact us if you have further questions or concerns or if you wish to have us continue to follow this patient with you. Shawn Bullard MD, FACS General Surgery Service [phone]
--- NOTE | 2024-02-05 07:38 | Discharge Plan ---
"Discharge Plan for SNF / [facility] - Discharge Plan And Transition Orders Problem Reviewed?: Yes Disposition: 03 SNF DC/Xfer Condition: Good Allergies and Adverse Reactions: Allergies Allergy/AdvReac Type Severity Reaction Status Date / Time No Known Drug Allergies Allergy Verified 02/02/24 10:15 Plan of Treatment: The patient has a diverticular abscess. Monitor closely for worsening abdominal pain. Follow up with shot lighter next week Assessment: The patient is stable for discharge today back to his assisted living facility - SNF / RESIDENTIAL Transition Orders Admit to (Facility): [facility] Discharge Diagnosis: 1. Diverticulitis with abscess Patient was followed closely by general surgery. Interventional radiology did not feel that this needed to be drained at this time. The patient responded quite well to IV Zosyn. He will complete a 10-day course of therapy with p.o. Augmentin at discharge. He will follow-up with his curly care physician within a week. If the primary care physician feels he needs further follow-up with general surgery this can be set up as an outpatient. 2. 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 1 in his early 20 minutes of [id number] time was spent with the patient, almost all in explanation and discussion and 1 about 7 years ago. He has cognitive deficits as a result. He is stable and no evidence of further bleeding 3. 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 His AVMs are an operable 5. BPH continue Flomax 0.4 mg daily 6. Hypoxia The patient was transiently hypoxic at the time of admission. He was in no distress and possibly due to his acute illness 7. Ambulatory dysfunction He is at his baseline. He uses a walker at his facility Medicare Certification Statement: I certify that [facility] is medically necessary on a continuing basis for any of the conditions for which she/he is receiving care during hospitalization. Notify PCP of admission and forward orders to primary provider for signature. Weight on admission and: Weekly Other Notification Orders: Call PCP immediately if patient develops dyspnea, chest pain/tightness or edema. House Bowel Program: Yes Additional Bowel Program Orders: If no BM after 2 days, nurse may give M.O.M. 30ml PO PRN and/or ducolax Supp 1 [place] and/or ANA 250mg P.O., and/or senna 1-2 tabs PO. On day 3 nurse may give repeat above order until residents constipation is resolved. Annual Influenza Vaccine (between Apr 11 and November 08): Yes Two-step PPD per [facility] [id number] or approved exception documents: Yes Medication Orders: PLEASE REFER TO THE DISCHARGE MEDICATION LIST. Insulin Orders?: No - Medications New Prescriptions: Amox/Clav 875/125 [Augmentin 875/125 Tab] 1 tablet PO Q8H 7 Days #21 tablet - Diet Type: Low residu May have monthly special meal: Yes - Therapies | Activity Activity: No Restrictions Weight Bearing: Full Weight Assistance Devices: Walker Follow Up: Follow up with Dr Holt in 1 week"
--- NOTE | 2024-02-05 07:55 | DISCHARGE SUMMARY ---
Discharge Summary Admit Date: 02/02/24 Discharge Date: 02/05/24 Discharging Provider: Britt Hein PA-C Primary Care Provider: Dr Tyree Holt Code Status: Attempt Resuscitation Condition at Discharge: Good Discharge Disposition: SNF DC/Xfer Discharge Facility Name: [facility] - DIAGNOSES Discharge Diagnoses with Status of Each Condition: 1. Diverticulitis with abscess Patient was followed closely by general surgery. Interventional radiology did not feel that this needed to be drained at this time. The patient responded quite well to IV Zosyn. He will complete a 10-day course of therapy with p.o. Augmentin at discharge. He will follow-up with his primary care physician within a week. If the primary care physician feels he needs further follow-up with general surgery this can be set up as an outpatient. Surgery also recommended adding Benefiber to his regimen 2. 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 1 in his early 20 minutes of [id number] time was spent with the patient, almost all in explanation and di scussion and 1 about 7 years ago. He has cognitive deficits as a result. He is stable and no evidence of further bleeding 3. 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 His AVMs are an operable 5. BPH Continue Flomax 0.4 mg daily 6. Hypoxia The patient was transiently hypoxic at the time of admission. He was in no distress and possibly due to his acute illness 7. Ambulatory dysfunction He is at his baseline. He uses a walker at his facility - HPI History of Present Illness: The patient is a pleasant 68-year-old gentleman with a past medical history of subarachnoid hemorrhage. He had his first hemorrhage in his 20s and had another severe hemorrhage about 7 years ago. As a result he has some cognitive deficits. He lives in a local assisted living facility. The patient was brought to the emergency room with a 1 week history of worsening abdominal pain. The patient has not had a bowel movement in over a week and has had enemas and an aggressive bowel regimen with no relief. Workup in the emergency room revealed white blood cell count of 9.9, hemoglobin of 15.1, platelet level of 253. Sodium level was 134, potassium 4.3, creatinine 1.6 with a BUN of 27. Glucose is mildly elevated at 125. Liver panel is unremarkable. CT scan of the abdomen and pelvis revealed streaky bibasilar pulmonary opacities. He was found to have evidence of sigmoid diverticulitis with a fluid and gas containing pericolonic abscess. The radiologist recommended a follow-up colonoscopy to exclude an underlying neoplasm. He also was noted to have coronary artery calcifications worrisome for coronary artery disease. The patient is awake and alert and quite pleasant. However he is unable to give any meaningful history. He is able to tell me that he has had pain in his abdomen and that it is not too bad at this time lying in the bed. Otherwise review of systems could not be obtained. I did speak at length to the patient's sister. Her name is Irma Olvera [phone]. She is his healthcare power of commercial real estate attorney. She indicates that she is hoping that he will not need to have surgery. She would like for him to be a DNR and does not want any aggressive care at the end of life but would want mendel tment up until that point. The POLST form was filled out and will be scanned into the medical record. - HOSPITAL COURSE Hospital Course: The patient was admitted to the hospital. He was started on IV Zosyn. General surgery was consulted and followed quite closely during this entire hospitalization. Interventional radiology was consulted and it was not felt that the abscess needed to be drained at this time. The patient responded beautifully to IV antibiotics. He is greatly improved. General surgery feels like he is stable for discharge with close outpatient follow-up. The patient's sister wanted him to follow-up with his primary care physician as it was closer. He should follow-up with his primary care physician within the next week. If his primary feels that he needs further follow-up with general surgery referral can be made at that time. The patient will be sent out to complete a course of therapy with p.o. Augmentin. When I saw the patient this morning he is awake alert and in good spirits. He is feeling well and his abdominal pain has improved. He did have a bowel movement last night. At this point maximum hospital benefit has been reached. The patient will be discharged today in stable condition. - ALLERGIES Allergies/Adverse Reactions: Allergies Allergy/AdvReac Type Severity Reaction Status Date / Time No Known Drug Allergies Allergy Verified 02/02/24 10:15 - MEDICATIONS Home Medications: Ambulatory Orders Medication Instructions Recorded Confirmed Simvastatin [Zocor] 20 mg PO DAILY 12/23/23 02/02/24 Tamsulosin [Flomax] 0.4 mg PO DAILY 12/23/23 02/02/24 Cholecalciferol [Vitamin D3] 50 mcg PO DAILY 02/02/24 02/02/24 Amox/Clav 875/125 [Augmentin 1 tablet PO Q8H 7 Days #21 tablet 02/05/24 875/125 Tab] Wheat Dextrin [Benefiber] 1 each PO DAILY #30 packet 02/05/24 - PHYSICAL EXAM AT DISCHARGE General Appearance: positive: No acute distress, Alert Eyes Bilateral: positive: Normal inspection ENT: positive: ENT inspection nml Neck: positive: Nml inspection Respiratory: positive: Chest non-tender, No respiratory distress Cardiovascular: positive: Regular rate & rhythm, No murmur, No gallop. negative: Friction rub Abdomen: positive: Non-tender, No organomegaly, Nml bowel sounds Skin: positive: Color nml, No rash, Warm, Dry Neurologic/Psychiatric: positive: Oriented x3, CN's nml (2-12) - LABS Result Diagrams: 02/05/24 05:17 02/05/24 05:17 - SEPSIS Current Stage of Sepsis: Ruled out Sepsis Criteria: Recorded Heart Rate greater than 90 bpm, Respiratory: Increasing oxygen requirements - QUALITY (Female Hip Fx Only) Was patient sent home on osteoporosis medication?: No (N/A) - FOLLOW UP Follow Up: The patient will follow-up with Dr. Holt in 1 week - TIME SPENT Time Spent in Discharge (Minutes): 45
[2024-02-05 08:03] VITALS: BP 134/66; O2SAT 95
[2024-02-05] MEDS: polyethylene glycoL 3350 17 GM PACKET PO SCH (08:38)
== END 2024-02-05 09:23 | DRG 391 ==
LOC: ED 09:59 → MS2 17:02
PROVIDERS: ADMIT Physician Assistant; ATTEND Physician Assistant
DX: K57.20 Diverticulitis of large intestine with perforation and abscess without bleeding (principal); Q28.2 Arteriovenous malformation of cerebral vessels; E87.1 Hypo-osmolality and hyponatremia; Z86.79 Personal history of other diseases of the circulatory system; E78.5 Hyperlipidemia, unspecified; N40.0 Benign prostatic hyperplasia without lower urinary tract symptoms; R09.02 Hypoxemia; I69.019 Unspecified symptoms and signs involving cognitive functions following nontraumatic subarachnoid hemorrhage; I25.10 Atherosclerotic heart disease of native coronary artery without angina pectoris; Z66 Do not resuscitate; F03.90 Unspecified dementia, unspecified severity, without behavioral disturbance, psychotic disturbance, mood disturbance, and anxiety; N18.30 Chronic kidney disease, stage 3 unspecified; R73.9 Hyperglycemia, unspecified
CPT/HCPCS: 36415; 74177; 80053; 80069; 80076; 81003; 83690; 83735; 85025; 96365; 97116; 97161; 97165; 99284; 99285; A9270; Q9967; 81001; 87086

== ENCOUNTER 2024-02-16 11:15 | Outpatient (CLI) | payer MEDICARE, MEDICAID ==
--- NOTE | 2024-02-16 14:10 | XRAY Report ---
PROCEDURE: Lumbar Spine 2-3V INDICATIONS: BACK PAIN/GAIT DISTURBANCE TECHNIQUE: 3 views of the lumbar spine were acquired. COMPARISON: CT of abdomen and pelvis dated 02/02/2024. FINDINGS: Surgical change: None. Bones: 5 [id number] vertebrae are present. There is mild rightward curvature of lower thoracic spine with apex at T12 level. Degenerative endplate changes and bilateral facet arthrosis at L5-S1 le lorenzo is seen. No vertebral body compression fractures. No suspicious bony lesions. Soft tissues: Overlying bowel gas pattern is normal. No suspicious soft tissue calcifications. IMPRESSION: Mild scoliosis as above. No acute compression fracture or spondylolisthesis is seen in the lumbar spi ne. Degenerative disc disease in lower lumbar spine at L5-S1 level. Reviewed by: Hector Lozada MD on 02/16/2024 2:09 PM PDT Approved by: Hector Lozada MD on 02/16/2024 2:09 PM PDT Station ID: [id number]
--- NOTE | 2024-02-16 19:48 | XRAY Report ---
PROCEDURE: Thoracic Spine 2V INDICATIONS: BACK PAIN TECHNIQUE: 2 views of the thoracic spine were acquired. COMPARISON: None. FINDINGS: Bones: No fractures or dislocations. No suspicious bony lesions. 12 pairs of ribs are noted, and a ppear intact where visualized. Soft tissues: No paravertebral stripe thickening. IMPRESSION: No acute bony abnormality. Reviewed by: Ramon Muhammad MD on 02/16/2024 7:47 PM PDT Approved by: Ramon Muhammad MD on 02/16/2024 7:47 PM PDT Station ID: [id number]
== END 2024-02-16 11:16 | disposition home or self-care (01) ==
LOC: DI 11:15
PROVIDERS: ATTEND Family Medicine
DX: M51.37 Other intervertebral disc degeneration, lumbosacral region (principal); M47.817 Spondylosis without myelopathy or radiculopathy, lumbosacral region

== ENCOUNTER 2024-03-26 09:26 | Outpatient (CLI) | payer MEDICARE, MEDICAID | END 2024-03-26 09:27 | disposition home or self-care (01) | LOC: LAB 09:26 | PROVIDERS: ATTEND Family Medicine | DX: Z13.228 Encounter for screening for other metabolic disorders (principal); Z13.0 Encounter for screening for diseases of the blood and blood-forming organs and certain disorders involving the immune mechanism; Z13.220 Encounter for screening for lipoid disorders; E61.0 Copper deficiency | CPT/HCPCS: 80053; 80061; 82306; 82607; 83721; 83735; 85025 ==